=== PATIENT | male | born 1990 | race Caucasian/White ===

== ENCOUNTER 2017-05-23 14:35 | Inpatient (IN) | payer OTHER ==
[2017-05-23 14:50] VITALS: BMI 22.6
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
[2017-05-23] MEDS ORDERED: IBUPROFEN 400 MG TABLET (FP) PO PRN (15:42)
[2017-05-23] MEDS ORDERED: NICOTINE POLACRILEX 4 MG GUM BC PRN (15:42)
[2017-05-23] MEDS ORDERED: hydrOXYzine PAMOATE 50 MG CAPSULE (FP) PO PRN (15:42)
[2017-05-23] MEDS ORDERED: ACETAMINOPHEN 325 MG TABLET (FP) PO PRN (15:42)
[2017-05-23] MEDS ORDERED: METHADONE HCL 10 MG TABLET (FOR DETOX USE ONLY) PO ONE ×2 (15:42→23:00)
[2017-05-23] MEDS ORDERED: P-EPHED 60MG/TRIPROLIDI 2.5MG TABLET PO PRN (15:42)
[2017-05-23] MEDS ORDERED: LOPERAMIDE HCL 2 MG CAPSULE PO PRN (15:42)
[2017-05-23] MEDS ORDERED: guaiFENesin/D-METHORPHAN HB 10 ML UNIT-DOSE CUPS PO PRN (15:42)
[2017-05-23] MEDS ORDERED: diphenhydrAMINE HCL 50 MG CAPSULE PO PRN (15:42)
[2017-05-23] MEDS ORDERED: MAGNESIUM CITRATE 300 ML BOTTLE PO PRN (15:42)
[2017-05-23] MEDS ORDERED: MENTHOL/PHENOL 1 EACH UD MM PRN (15:42)
[2017-05-23] MEDS ORDERED: MAGNESIUM HYDROX 2400MG/30ML ORAL SUSPENSION 30 ML CUP PO PRN (15:42)
[2017-05-23] MEDS ORDERED: MAG HYDROX/AL HYDROX/SIMETH 30 ML UNIT-DOSE CUP PO PRN (15:42)
[2017-05-23] MEDS: diazePAM 5 MG TABLET PO PRN ×2 (17:06→22:11)
[2017-05-23 21:11] LABS: URINE APPEARANCE SLCLOUDY; URINE BILIRUBIN NEGATIVE (NEGATIVE); URINE BLOOD NEGATIVE (NEGATIVE); URINE COLOR YELLOW; URINE GLUCOSE (UA) NEGATIVE (NEGATIVE); URINE KETONE NEGATIVE (NEGATIVE); URINE LEUK ESTERASE NEGATIVE (NEGATIVE); URINE NITRITE NEGATIVE (NEGATIVE); URINE PROTEIN NEGATIVE (NEGATIVE); URINE UROBILINOGEN NEGATIVE mg/dL (0.2-1.0)
[2017-05-23] MEDS: THIAMINE HCL 100 MG TABLET (FP) PO SCH (22:10)
--- NOTE | 2017-05-24 09:51 | PN ---
BHS COWS - Scale Resting Pulse: 0= [place] 80 or Below Sweatin= Chills/Flushing Restless Observation: 3= Extraneous Movement Pupil Size: 1= Pupils >than Normal Bone or Joint Aches: 2= Severe Diffuse Aches Runny Nose/ Eye Tearin= Runny Nose/Eyes GI Upset > 30mins: 3= Vomiting/Diarrhea Tremor Observation of Outstretched Hands: 2= Slight Tremor Visible Yawning Observation: 1= 1-2x During Session Anxiety or Irritability: 2=Irritable/Anxious Goose Flesh Skin: 0=Smooth Skin COWS Score: 17 BHS Progress Note (SOAP) Subjective: ALERT,IRRITABLE,ANXIOUS,INTERRUPTED SLEEP,TREMOR,PAIN IN THE BODY AND BACK Objective: 05/24/17 09:48 Vital Signs Temperature 97.9 F 05/24/17 09:20 Pulse Rate 57 L 05/24/17 09:20 Respiratory Rate 16 05/24/17 09:20 Blood Pressure 153/99 05/24/17 09:20 O2 Sat by Pulse Oximetry (%) EKG SINUS BRADYCARDIA WITH SINUS ARRHYTHMIA NORMAL ECG NO CHEST PAIN,NO SOB,NO DIZZINESS 05/24/17 09:49 Laboratory Last Values Urine Color Yellow 05/23/17 20:00 Urine Appearance Slcloudy 05/23/17 20:00 Urine pH 5.0 (5.0-8.0) 05/23/17 20:00 Ur Specific [place] 1.025 (1.005-1.025) 05/23/17 20:00 Urine Protein Negative (NEGATIVE) 05/23/17 20:00 Urine Glucose (UA) Negative (NEGATIVE) 05/23/17 20:00 Urine Ketones Negative (NEGATIVE) 05/23/17 20:00 Urine Blood Negative (NEGATIVE) 05/23/17 20:00 Urine Nitrite Negative (NEGATIVE) 05/23/17 20:00 Urine Bilirubin Negative (NEGATIVE) 05/23/17 20:00 Urine Urobilinogen Negative mg/dL (0.2-1.0) 05/23/17 20:00 Ur Leukocyte Esterase Negative (NEGATIVE) 05/23/17 20:00 LABS PENDING Assessment: 05/24/17 09:49 05/24/17 09:50 WITHDRAWAL SYMPTOM Plan: CONTINUE DETOX
[2017-05-24 09:58] LABS: MCHC 33.8 g/dl (32.0-35.9); MEAN CELL VOLUME 86.1 fl (80-96); MEAN PLT VOLUME 7.6 fl (7.5-11.1); PLATELET COUNT 312 K/MM3 (134-434); RDW 11.4 % (11.9-15.9); WHITE BLOOD COUNT 8.7 K/mm3 (4.0-10.0)
[2017-05-24] MEDS ORDERED: METHADONE HCL 10 MG TABLET (FOR DETOX USE ONLY) PO ONE (10:00)
[2017-05-24] MEDS: PRENATAL VITAMINS W/ FOLIC ACID TABLET (FP) PO SCH (10:07)
[2017-05-24] MEDS: cloNIDine HCL 0.1 MG TABLET PO SCH ×2 (10:08→22:06)
[2017-05-24] MEDS: NICOTINE 21 MG/24 HOURS TOPICAL PATCH TD SCH (10:10)
[2017-05-24 10:45] LABS: ANION GAP 7 (8-16); BILIRUBIN,TOTAL 0.6 mg/dL (0.2-1.0); CALCIUM 9.5 mg/dL (8.5-10.1); CO2 35 mmol/L (21-32); CREATININE 0.7 mg/dL (0.7-1.3); GLUCOSE,RANDOM 91 mg/dL (74-106); SGOT/AST 13 U/L (15-37); SGPT/ALT 27 U/L (12-78); TOT PROT 7.4 g/dl (6.4-8.2)
[2017-05-24 10:48] LABS: ALK PHOS 100 U/L (45-117)
[2017-05-24 12:39] LABS: HIV 1 & 2 AB NEGATIVE; HIV 1 AGp24 NEGATIVE
--- NOTE | 2017-05-24 16:44 | CONSULT ---
[facility] Psychiatric Consult - Data Date of interview: 05/24/17 Admission source: [facility] Identifying data: First admission to [facility] for this 26 y/o - [place] male from [facility] ancestry seeking detox treatment on for heroin dependence (tox screen is positive for marihuana).Patient is single without children,domiciled and currently employed. Substance Abuse History: Confirmed by patient in this interview. Smoking Cessation. Smoking history: Former smoker. Have you smoked in the past 12 months: Yes. Aproximately how many cigarettes per day: 3. Hx Chewing Tobacco Use: No. Initiated information on smoking cessation: Yes. 'Breaking Loose' booklet given: 05/23/17. - Substance & Tx. History. Hx Alcohol Use: No. Hx Substance Use: Yes. Substance Use Type: Heroin. Hx Substance Use Treatment: No (this is his first detox.). - Substances Abused. Heroin. Route: Injection. Frequency: Daily. Amount used: 5 bags. Age of first use: 22. Date of Last Use: 05/23/17 Medical History: Patient endorses good general health. Psychiatric History: Patient denies. Physical/Sexual Abuse/Trauma History: No reported history of abuse. Additional Comment: Urine Drug Screen Results: THC-Marijuana, OPI-Opiates.Noted. Mental Status Exam - Mental Status Exam Alert and Oriented to: Time, Place, Person Cognitive Function: Good Patient Appearance: Well Groomed Mood: Nervous, Anxious Affect: Mood Congruent Patient Behavior: Fatigued, Appropriate, Cooperative (friendly) Speech Pattern: Clear, Appropriate (bilingual) Voice Loudness: Normal Thought Process: Intact, Goal Oriented Thought Disorder: Not Present Hallucinations: Denies Suicidal Ideation: Denies Homicidal Ideation: Denies Insight/Judgement: Poor Sleep: Well Appetite: Good Muscle strength/Tone: Normal Gait/Station: Normal Psychiatric Findings - Problem List ([place] 1, 2,3) (1) Nicotine dependence Current Visit: Yes Status: Acute Qualifiers: Nicotine product type: cigarettes Substance use status: uncomplicated Qualified Code(s): F17.210 - Nicotine dependence, cigarettes, uncomplicated (2) Opioid dependence with withdrawal Current Visit: Yes Status: Acute (3) Marijuana abuse Current Visit: Yes Status: Acute - Initial Treatment Plan Initial Treatment Plan: Psychoeducation.Detoxification.Observation.
[2017-05-24] MEDS: diazePAM 5 MG TABLET PO PRN ×2 (17:23→22:07)
[2017-05-24] MEDS: CYCLOBENZAPRINE HCL 10 MG TABLET (FP) PO PRN (22:06)
[2017-05-24] MEDS: THIAMINE HCL 100 MG TABLET (FP) PO SCH (22:06)
[2017-05-25] MEDS ORDERED: METHADONE HCL 5 MG TABLET (FOR DETOX USE ONLY) PO ONE (10:00)
[2017-05-25] MEDS: diazePAM 5 MG TABLET PO PRN ×3 (10:45→22:09)
[2017-05-25] MEDS: PRENATAL VITAMINS W/ FOLIC ACID TABLET (FP) PO SCH (10:46)
[2017-05-25] MEDS: NICOTINE 21 MG/24 HOURS TOPICAL PATCH TD SCH (10:46)
[2017-05-25] MEDS: CYCLOBENZAPRINE HCL 10 MG TABLET (FP) PO PRN ×2 (10:46→22:09)
[2017-05-25] MEDS: cloNIDine HCL 0.1 MG TABLET PO SCH ×2 (10:46→22:09)
--- NOTE | 2017-05-25 11:34 | EKG ---
Test Reason : Blood Pressure : / mmHG Vent. Rate : 059 BPM Atrial Rate : 059 BPM P-R Int : 140 ms QRS Dur : 098 ms QT Int : 414 ms P-R-T Axes : 055 075 060 degrees QTc Int : 409 ms SINUS BRADYCARDIA WITH SINUS ARRHYTHMIA OTHERWISE NORMAL ECG NO PREVIOUS ECGS AVAILABLE Confirmed by SOREN BELLA MD ([id number]) on 05/25/2017 11:33:34 AM Referred By: Confirmed By:SOREN BELLA MD
--- NOTE | 2017-05-25 12:23 | PN ---
BHS COWS - Scale Resting Pulse: 0= [place] 80 or Below Sweatin= Chills/Flushing Restless Observation: 3= Extraneous Movement Pupil Size: 1= Pupils >than Normal Bone or Joint Aches: 2= Severe Diffuse Aches Runny Nose/ Eye Tearin= Runny Nose/Eyes GI Upset > 30mins: 2= Nausea/Diarrhea Tremor Observation of Outstretched Hands: 2= Slight Tremor Visible Yawning Observation: 1= 1-2x During Session Anxiety or Irritability: 2=Irritable/Anxious Goose Flesh Skin: 0=Smooth Skin COWS Score: 16 S Progress Note (SOAP) Subjective: ALERT,IRRITABLE,ANXIOUS,INTERRUPTED SLEEP,PAIN IN THE BODY AND BACK Objective: 05/25/17 12:21 Vital Signs Temperature 97.7 F 05/25/17 09:51 Pulse Rate 66 05/25/17 09:51 Respiratory Rate 18 05/25/17 09:51 Blood Pressure 128/81 05/25/17 09:51 O2 Sat by Pulse Oximetry (%) Laboratory Last Values WBC 8.7 K/mm3 (4.0-10.0) 05/24/17 07:00 RBC 4.84 M/mm3 (4.00-5.60) 05/24/17 07:00 Hgb 14.1 GM/dL (11.7-16.9) 05/24/17 07:00 Hct 41.7 % (35.4-49) 05/24/17 07:00 MCV 86.1 fl (80-96) 05/24/17 07:00 MCH 29.0 pg (25.7-33.7) 05/24/17 07:00 MCHC 33.8 g/dl (32.0-35.9) 05/24/17 07:00 RDW 11.4 % (11.9-15.9) L 05/24/17 07:00 Plt Count 312 K/MM3 (134-434) 05/24/17 07:00 MPV 7.6 fl (7.5-11.1) 05/24/17 07:00 Sodium 141 mmol/L (136-145) 05/24/17 07:00 Potassium 4.8 mmol/L (3.5-5.1) 05/24/17 07:00 Chloride 99 mmol/L (98-107) 05/24/17 07:00 Carbon Dioxide 35 mmol/L (21-32) H 05/24/17 07:00 Anion Gap 7 (8-16) L 05/24/17 07:00 BUN 13 mg/dL (7-18) 05/24/17 07:00 Creatinine 0.7 mg/dL (0.7-1.3) 05/24/17 07:00 Creat Clearance w eGFR > 60 (>60) 05/24/17 07:00 Random Glucose 91 mg/dL (74-106) 05/24/17 07:00 Calcium 9.5 mg/dL (8.5-10.1) 05/24/17 07:00 Total Bilirubin 0.6 mg/dL (0.2-1.0) 05/24/17 07:00 AST 13 U/L (15-37) L 05/24/17 07:00 ALT 27 U/L (12-78) 05/24/17 07:00 Alkaline Phosphatase 100 U/L (45-117) 05/24/17 07:00 Total Protein 7.4 g/dl (6.4-8.2) 05/24/17 07:00 Albumin 4.0 g/dl (3.4-5.0) 05/24/17 07:00 Urine Color Yellow 05/23/17 20:00 Urine Appearance Slcloudy 05/23/17 20:00 Urine pH 5.0 (5.0-8.0) 05/23/17 20:00 Ur Specific [place] 1.025 (1.005-1.025) 05/23/17 20:00 Urine Protein Negative (NEGATIVE) 05/23/17 20:00 Urine Glucose (UA) Negative (NEGATIVE) 05/23/17 20:00 Urine Ketones Negative (NEGATIVE) 05/23/17 20:00 Urine Blood Negative (NEGATIVE) 05/23/17 20:00 Urine Nitrite Negative (NEGATIVE) 05/23/17 20:00 Urine Bilirubin Negative (NEGATIVE) 05/23/17 20:00 Urine Urobilinogen Negative mg/dL (0.2-1.0) 05/23/17 20:00 Ur Leukocyte Esterase Negative (NEGATIVE) 05/23/17 20:00 HIV 1&2 Antibody Screen Negative 05/23/17 07:00 HIV P24 Antigen Negative 05/23/17 07:00 Assessment: 05/25/17 12:22 WITHDRAWAL SYMPTOM Plan: CONTINUE DETOX
--- NOTE | 2017-05-25 12:57 | EKG ---
Test Reason : Blood Pressure : / mmHG Vent. Rate : 055 BPM Atrial Rate : 055 BPM P-R Int : 134 ms QRS Dur : 088 ms QT Int : 424 ms P-R-T Axes : 067 080 064 degrees QTc Int : 405 ms SINUS BRADYCARDIA OTHERWISE NORMAL ECG WHEN COMPARED WITH ECG OF 23-MAY-2017 16:13, NO SIGNIFICANT CHANGE WAS FOUND Confirmed by SOREN BELLA MD ([id number]) on 05/25/2017 12:57:36 PM Referred By: Confirmed By:SOREN BELLA MD
[2017-05-25] MEDS: THIAMINE HCL 100 MG TABLET (FP) PO SCH (22:09)
[2017-05-26] MEDS ORDERED: METHADONE HCL 5 MG TABLET (FOR DETOX USE ONLY) PO ONE (10:00)
[2017-05-26] MEDS: PRENATAL VITAMINS W/ FOLIC ACID TABLET (FP) PO SCH (10:56)
[2017-05-26] MEDS: cloNIDine HCL 0.1 MG TABLET PO SCH ×2 (10:57→22:04)
[2017-05-26] MEDS: NICOTINE 21 MG/24 HOURS TOPICAL PATCH TD SCH (10:57)
[2017-05-26] MEDS: diazePAM 5 MG TABLET PO PRN (10:57)
[2017-05-26] MEDS: CYCLOBENZAPRINE HCL 10 MG TABLET (FP) PO PRN ×2 (10:57→22:04)
[2017-05-26] MEDS: THIAMINE HCL 100 MG TABLET (FP) PO SCH (22:04)
[2017-05-27] MEDS ORDERED: METHADONE HCL 10 MG TABLET (FOR DETOX USE ONLY) PO ONE (10:00)
[2017-05-27] MEDS: CYCLOBENZAPRINE HCL 10 MG TABLET (FP) PO PRN ×2 (11:01→22:08)
[2017-05-27] MEDS: cloNIDine HCL 0.1 MG TABLET PO SCH ×2 (11:01→22:08)
[2017-05-27] MEDS: PRENATAL VITAMINS W/ FOLIC ACID TABLET (FP) PO SCH (11:01)
[2017-05-27] MEDS: NICOTINE 21 MG/24 HOURS TOPICAL PATCH TD SCH (11:02)
--- NOTE | 2017-05-27 12:06 | PN ---
BHS Progress Note (SOAP) Subjective: ALERT,IRRITABLE,ANXIOUS,INTERRUPTED SLEEP,PAIN IN THE BODY Objective: 05/27/17 12:05 Vital Signs Temperature 96.8 F L 05/27/17 10:23 Pulse Rate 68 05/27/17 10:23 Respiratory Rate 18 05/27/17 10:23 Blood Pressure 129/79 05/27/17 10:23 O2 Sat by Pulse Oximetry (%) Assessment: 05/27/17 12:05 WITHDRAWAL SYMPTOM Plan: CONTINUE DETOX,DISCHARGE IN AM
[2017-05-27] MEDS: THIAMINE HCL 100 MG TABLET (FP) PO SCH (22:08)
[2017-05-28] MEDS ORDERED: METHADONE HCL 5 MG TABLET (FOR DETOX USE ONLY) PO ONE (06:00)
[2017-05-28] MEDS: cloNIDine HCL 0.1 MG TABLET PO SCH (10:15)
[2017-05-28] MEDS: PRENATAL VITAMINS W/ FOLIC ACID TABLET (FP) PO SCH (10:15)
[2017-05-28] MEDS: NICOTINE 21 MG/24 HOURS TOPICAL PATCH TD SCH (10:15)
[2017-05-28 10:41] VITALS: BP 118/75; PULSE 94; TEMP 99
--- NOTE | 2017-05-28 11:41 | DS ---
[facility] Detox Discharge Summary Admission Date: 05/23/17 Discharge Date: 05/28/17 - History Present History: Opioid Dependence Additional Comments: follow up with [facility] as arrangement Pertinent Past History: nicotine dependence - Physical Exam Results Vital Signs: Vital Signs Temperature 99.0 F 05/28/17 10:00 Pulse Rate 94 H 05/28/17 10:00 Respiratory Rate 18 05/28/17 10:00 Blood Pressure 118/75 05/28/17 10:00 O2 Sat by Pulse Oximetry (%) Pertinent Admission Physical Exam Findings: withdrawal symptom - Treatment Hospital Course: Detox Protocol Followed, Detoxed Safely, Responded well, Discharged Condition Good, Rehab Referral Accepted Patient has Accepted a Rehab Referral to: [facility] - Medication Discharge Medications: Ambulatory Orders NK [No Known Home Medication] 05/23/17 - AMA Did Patient Leave Against Medical Advice: No
== END 2017-05-28 12:30 | disposition other institution (70) | DRG 773 ==
LOC: YASAS 14:35 → Y6N 16:12
PROVIDERS: ADMIT Internal Medicine; ATTEND Internal Medicine
PROC: HZ2ZZZZ Detoxification Services for Substance Abuse Treatment (ICD-10-PCS; principal; 2017-05-28)
DX: F11.23 Opioid dependence with withdrawal (principal); F17.210 Nicotine dependence, cigarettes, uncomplicated; F32.9 Major depressive disorder, single episode, unspecified
CPT/HCPCS: 36415; 80053; 81003; 85027; 86593; 87389; 93005; 93010

== ENCOUNTER 2017-05-28 13:13 | Inpatient (IN) | payer OTHER ==
[2017-05-28] MEDS ORDERED: ACETAMINOPHEN 325 MG TABLET (FP) PO PRN (13:58)
[2017-05-28] MEDS ORDERED: MAGNESIUM CITRATE 300 ML BOTTLE PO PRN (13:58)
[2017-05-28] MEDS ORDERED: P-EPHED 60MG/TRIPROLIDI 2.5MG TABLET PO PRN (13:58)
[2017-05-28] MEDS ORDERED: MENTHOL/PHENOL 1 EACH UD MM PRN (13:58)
[2017-05-28] MEDS ORDERED: MAG HYDROX/AL HYDROX/SIMETH 30 ML UNIT-DOSE CUP PO PRN (13:58)
[2017-05-28] MEDS ORDERED: guaiFENesin/D-METHORPHAN HB 10 ML UNIT-DOSE CUPS PO PRN (13:58)
[2017-05-28] MEDS ORDERED: LOPERAMIDE HCL 2 MG CAPSULE PO PRN (13:58)
[2017-05-28] MEDS ORDERED: IBUPROFEN 400 MG TABLET (FP) PO PRN (13:58)
[2017-05-28] MEDS: THIAMINE HCL 100 MG TABLET (FP) PO SCH (21:19)
[2017-05-29] MEDS: PRENATAL VITAMINS W/ FOLIC ACID TABLET (FP) PO SCH (09:50)
[2017-05-29] MEDS: hydrOXYzine PAMOATE 50 MG CAPSULE (FP) PO PRN ×2 (09:51→21:17)
[2017-05-29] MEDS: THIAMINE HCL 100 MG TABLET (FP) PO SCH (21:17)
[2017-05-30] MEDS: hydrOXYzine PAMOATE 50 MG CAPSULE (FP) PO PRN (06:22)
[2017-05-30] MEDS: PRENATAL VITAMINS W/ FOLIC ACID TABLET (FP) PO SCH (10:09)
[2017-05-30] MEDS: MAGNESIUM HYDROX 2400MG/30ML ORAL SUSPENSION 30 ML CUP PO PRN (10:11)
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
[2017-05-30] MEDS: diphenhydrAMINE HCL 50 MG CAPSULE PO PRN (21:19)
[2017-05-30] MEDS: THIAMINE HCL 100 MG TABLET (FP) PO SCH (21:19)
[2017-05-31] MEDS: hydrOXYzine PAMOATE 50 MG CAPSULE (FP) PO PRN ×3 (02:23→23:50)
[2017-05-31] MEDS: PRENATAL VITAMINS W/ FOLIC ACID TABLET (FP) PO SCH (10:02)
[2017-05-31] MEDS ORDERED: MAGNESIUM CITRATE 300 ML BOTTLE PO PRN (12:25)
[2017-05-31] MEDS: THIAMINE HCL 100 MG TABLET (FP) PO SCH (21:14)
[2017-05-31] MEDS: diphenhydrAMINE HCL 50 MG CAPSULE PO PRN (21:14)
[2017-06-01] MEDS: hydrOXYzine PAMOATE 50 MG CAPSULE (FP) PO PRN ×3 (02:55→21:15)
[2017-06-01] MEDS: PRENATAL VITAMINS W/ FOLIC ACID TABLET (FP) PO SCH (09:38)
[2017-06-01] MEDS: MAGNESIUM HYDROX 2400MG/30ML ORAL SUSPENSION 30 ML CUP PO PRN (09:39)
[2017-06-01] MEDS: THIAMINE HCL 100 MG TABLET (FP) PO SCH (21:15)
[2017-06-01] MEDS: diphenhydrAMINE HCL 50 MG CAPSULE PO PRN (23:26)
[2017-06-02] MEDS: hydrOXYzine PAMOATE 50 MG CAPSULE (FP) PO PRN ×2 (01:11→09:51)
[2017-06-02] MEDS: PRENATAL VITAMINS W/ FOLIC ACID TABLET (FP) PO SCH (09:50)
[2017-06-02] MEDS: THIAMINE HCL 100 MG TABLET (FP) PO SCH (22:13)
[2017-06-02] MEDS: diphenhydrAMINE HCL 50 MG CAPSULE PO PRN (22:13)
[2017-06-03] MEDS: hydrOXYzine PAMOATE 50 MG CAPSULE (FP) PO PRN (00:38)
[2017-06-03] MEDS: PRENATAL VITAMINS W/ FOLIC ACID TABLET (FP) PO SCH (09:50)
[2017-06-03] MEDS: THIAMINE HCL 100 MG TABLET (FP) PO SCH (21:11)
[2017-06-04] MEDS: PRENATAL VITAMINS W/ FOLIC ACID TABLET (FP) PO SCH (09:50)
[2017-06-04] MEDS: THIAMINE HCL 100 MG TABLET (FP) PO SCH (21:12)
[2017-06-04] MEDS: diphenhydrAMINE HCL 50 MG CAPSULE PO PRN (21:12)
[2017-06-05] MEDS: PRENATAL VITAMINS W/ FOLIC ACID TABLET (FP) PO SCH (09:55)
[2017-06-05] MEDS: hydrOXYzine PAMOATE 50 MG CAPSULE (FP) PO PRN (09:55)
[2017-06-05] MEDS: THIAMINE HCL 100 MG TABLET (FP) PO SCH (21:11)
[2017-06-05] MEDS: diphenhydrAMINE HCL 50 MG CAPSULE PO PRN (21:11)
[2017-06-06] MEDS: PRENATAL VITAMINS W/ FOLIC ACID TABLET (FP) PO SCH (09:54)
[2017-06-06] MEDS: THIAMINE HCL 100 MG TABLET (FP) PO SCH (21:12)
[2017-06-07] MEDS: PRENATAL VITAMINS W/ FOLIC ACID TABLET (FP) PO SCH (10:05)
[2017-06-07] MEDS: THIAMINE HCL 100 MG TABLET (FP) PO SCH (21:14)
[2017-06-07] MEDS: diphenhydrAMINE HCL 50 MG CAPSULE PO PRN (21:14)
[2017-06-08] MEDS: PRENATAL VITAMINS W/ FOLIC ACID TABLET (FP) PO SCH (09:59)
[2017-06-08] MEDS: hydrOXYzine PAMOATE 50 MG CAPSULE (FP) PO PRN (10:00)
[2017-06-08] MEDS: THIAMINE HCL 100 MG TABLET (FP) PO SCH (21:12)
[2017-06-08] MEDS: diphenhydrAMINE HCL 50 MG CAPSULE PO PRN (21:12)
[2017-06-09] MEDS: PRENATAL VITAMINS W/ FOLIC ACID TABLET (FP) PO SCH (10:00)
--- NOTE | 2017-06-09 14:35 | PN ---
Psychiatric Progress Note Vital Signs: Vital Signs Period Temp Pulse Resp BP Sys/Ma Pulse Ox Last 24 Hr 98.0 F 72 16-18 128/90 Date of Session: 06/09/17 Chief Complaint:: discharge visit HPI: Patient is addressing opioid, nicotine dependence, cannabis abuse. ROS: WNL Current Medications: Active Medications Generic Name Dose Route Start Last Admin Trade Name Freq PRN Reason Stop Dose Admin Acetaminophen 650 mg 05/28/17 13:58 Tylenol - PO Q4H PRN FEVER OR PAIN Al Hydroxide/Mg Hydroxide 30 ml 05/28/17 13:58 Mylanta Oral Suspension - PO Q6H PRN DYSPEPSIA Diphenhydramine HCl 50 mg 05/28/17 22:00 06/08/17 21:12 Benadryl - PO 50 mg HSMR1 PRN Administration FOR ITCHING Eucalyptus/Menthol/Phenol/Sorbitol 1 each 05/28/17 13:58 Cepastat Lozenge - MM Q4H PRN SORE THROAT Guaifenesin 10 ml 05/28/17 13:58 Robitussin Dm - PO Q6H PRN COUGH Hydroxyzine Pamoate 50 mg 05/28/17 13:58 06/08/17 10:00 Vistaril - PO 50 mg Q4H PRN Administration AGITATION Ibuprofen 400 mg 05/28/17 13:58 Motrin - PO Q6H PRN PAIN Loperamide HCl 4 mg 05/28/17 13:58 Imodium - PO Q6H PRN DIARRHEA Magnesium Hydroxide 30 ml 05/28/17 13:58 06/01/17 09:39 Milk Of Magnesia - PO 30 ml DAILY PRN Administration CONSTIPATION Multivit/Folic Acid/Iron 1 tab 05/29/17 10:00 06/09/17 10:00 Vitamins (Sjr) - PO 1 tab DAILY DEBORAH Administration Pseudoephedrine/Triprolidine 1 combo 05/28/17 13:58 Actifed - PO TID PRN NASAL CONGESTION Thiamine HCl 100 mg 05/28/17 22:00 06/08/17 21:12 Vitamin B1 - PO 100 mg HS DEBORAH Administration Current Side Effect: No Lab tests ordered: No Lab tests reviewed: Yes Provider note:: Patient will completed this treatment on 06/10/17 and meet his goals, will continue to address his issues at [facility] in [facility] inpatient rehabilitation 90 days treatment program. Patient gained insihts into importance of changing attitudes, using coping skills and utilize all supports available to prevent relapses.He was educated on his addiction, implications and consequences on his physical and mental health, the importance to maintain sobriety. Supportive psychotherapy provided, patient is stable for discharge on 06/10/17. Total face to face time:: 35 Mental Status Exam - Mental Status Exam Alert and Oriented to: Time, Place, Person Cognitive Function: Good Patient Appearance: Well Groomed Mood: Hopeful Affect: Appropriate, Mood Congruent Patient Behavior: Appropriate, Cooperative Speech Pattern: Clear, Appropriate Voice Loudness: Normal Thought Process: Intact, Goal Oriented Thought Disorder: Not Present Hallucinations: Denies Suicidal Ideation: Denies Homicidal Ideation: Denies Insight/Judgement: Fair Sleep: Well Appetite: Good Muscle strength/Tone: Normal Gait/Station: Normal Psychiatric Treatment Plan - Problem List (1) Marijuana abuse Current Visit: No (2) Nicotine dependence Current Visit: No Qualifiers: Nicotine product type: cigarettes Substance use status: uncomplicated Qualified Code(s): F17.210 - Nicotine dependence, cigarettes, uncomplicated (3) Opioid dependence Current Visit: Yes (4) Substance induced mood disorder Current Visit: Yes
[2017-06-09] MEDS: diphenhydrAMINE HCL 50 MG CAPSULE PO PRN (21:13)
[2017-06-09] MEDS: THIAMINE HCL 100 MG TABLET (FP) PO SCH (21:13)
[2017-06-10 06:41] VITALS: BP 144/94; PULSE 76; TEMP 98.1
[2017-06-10] MEDS: PRENATAL VITAMINS W/ FOLIC ACID TABLET (FP) PO SCH (09:45)
== END 2017-06-10 11:00 | disposition home or self-care (01) | DRG 772 ==
LOC: YASAS 13:13 → Y5N 13:14
PROVIDERS: ADMIT Psychiatry & Neurology Psychiatry; ATTEND Psychiatry & Neurology Psychiatry
PROC: HZ42ZZZ Group Counseling for Substance Abuse Treatment, Cognitive-Behavioral (ICD-10-PCS; principal; 2017-05-28)
DX: F11.20 Opioid dependence, uncomplicated (principal); F12.10 Cannabis abuse, uncomplicated; F17.210 Nicotine dependence, cigarettes, uncomplicated; F19.24 Other psychoactive substance dependence with psychoactive substance-induced mood disorder

== ENCOUNTER 2017-09-10 14:26 | Inpatient (IN) | payer SELFPAY ==
[2017-09-10 14:29] VITALS: BMI 23.2
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
[2017-09-10] MEDS ORDERED: guaiFENesin/D-METHORPHAN HB 10 ML UNIT-DOSE CUPS PO PRN (14:46)
[2017-09-10] MEDS ORDERED: P-EPHED 60MG/TRIPROLIDI 2.5MG TABLET PO PRN (14:46)
[2017-09-10] MEDS ORDERED: MENTHOL/PHENOL 1 EACH UD MM PRN (14:46)
[2017-09-10] MEDS ORDERED: IBUPROFEN 400 MG TABLET (FP) PO PRN (14:46)
[2017-09-10] MEDS ORDERED: MAGNESIUM HYDROX 2400MG/30ML ORAL SUSPENSION 30 ML CUP PO PRN (14:46)
[2017-09-10] MEDS ORDERED: MAG HYDROX/AL HYDROX/SIMETH 30 ML UNIT-DOSE CUP PO PRN (14:46)
[2017-09-10] MEDS ORDERED: METHADONE HCL 10 MG TABLET (FOR DETOX USE ONLY) PO ONE ×2 (14:46→23:00)
[2017-09-10] MEDS ORDERED: LOPERAMIDE HCL 2 MG CAPSULE PO PRN (14:46)
[2017-09-10] MEDS ORDERED: MAGNESIUM CITRATE 300 ML BOTTLE PO PRN (14:46)
[2017-09-10] MEDS ORDERED: ACETAMINOPHEN 325 MG TABLET (FP) PO PRN (14:46)
[2017-09-10] MEDS ORDERED: METHADONE HCL 10 MG TABLET (FOR DETOX USE ONLY) ONE (16:57)
[2017-09-10] MEDS: diazePAM 5 MG TABLET PO PRN ×2 (17:05→22:47)
[2017-09-10] MEDS: THIAMINE HCL 100 MG TABLET (FP) PO SCH (22:45)
[2017-09-11 00:07] LABS: URINE APPEARANCE TURBID; URINE BILIRUBIN NEGATIVE (NEGATIVE); URINE BLOOD 2+ (NEGATIVE); URINE COLOR YELLOW; URINE GLUCOSE (UA) NEGATIVE (NEGATIVE); URINE KETONE NEGATIVE (NEGATIVE); URINE LEUK ESTERASE NEGATIVE (NEGATIVE); URINE NITRITE NEGATIVE (NEGATIVE); URINE PROTEIN NEGATIVE (NEGATIVE); URINE UROBILINOGEN NEGATIVE mg/dL (0.2-1.0)
[2017-09-11 00:42] LABS: URINE MUCUS MANY
[2017-09-11] MEDS: diazePAM 5 MG TABLET PO PRN ×4 (02:49→22:53)
--- NOTE | 2017-09-11 09:02 | EKG ---
Test Reason : Blood Pressure : / mmHG Vent. Rate : 064 BPM Atrial Rate : 064 BPM P-R Int : 132 ms QRS Dur : 084 ms QT Int : 394 ms P-R-T Axes : 072 087 064 degrees QTc Int : 406 ms NORMAL SINUS RHYTHM NORMAL ECG WHEN COMPARED WITH ECG OF 24-MAY-2017 16:54, NO SIGNIFICANT CHANGE WAS FOUND Confirmed by VY MCINTOSH MD ([id number]) on 09/11/2017 9:02:18 AM Referred By: Confirmed By:VY MCINTOSH MD
[2017-09-11] MEDS ORDERED: METHADONE HCL 10 MG TABLET (FOR DETOX USE ONLY) PO ONE (10:00)
[2017-09-11 10:04] LABS: ALBUMIN 3.4 g/dl (3.4-5.0); ANION GAP 9 (8-16); CALCIUM 8.6 mg/dL (8.5-10.1); CO2 29 mmol/L (21-32); GLUCOSE,RANDOM 87 mg/dL (74-106)
[2017-09-11 10:09] LABS: ALK PHOS 107 U/L (45-117); BILIRUBIN,TOTAL 0.5 mg/dL (0.2-1.0); CREATININE 0.7 mg/dL (0.7-1.3); SGOT/AST 11 U/L (15-37); SGPT/ALT 73 U/L (12-78); TOT PROT 6.7 g/dl (6.4-8.2)
[2017-09-11 10:24] LABS: MCH 29.8 pg (25.7-33.7); MCHC 34.5 g/dl (32.0-35.9); MEAN CELL VOLUME 86.3 fl (80-96); MEAN PLT VOLUME 7.4 fl (7.5-11.1); PLATELET COUNT 249 K/MM3 (134-434); RDW 11.4 % (11.9-15.9); WHITE BLOOD COUNT 6.7 K/mm3 (4.0-10.0)
[2017-09-11] MEDS: PRENATAL VITAMINS W/ FOLIC ACID TABLET (FP) PO SCH (10:47)
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
[2017-09-11 13:38] LABS: URINE LEUK ESTERASE NEGATIVE (NEGATIVE)
--- NOTE | 2017-09-11 17:17 | PN ---
BHS COWS - Scale Resting Pulse: 0= DE 80 or Below Sweatin=Flushed/Facial Moisture Restless Observation: 3= Extraneous Movement Pupil Size: 0= Normal to Room Light Bone or Joint Aches: 2= Severe Diffuse Aches Runny Nose/ Eye Tearin= Nasal Congestion GI Upset > 30mins: 2= Nausea/Diarrhea Tremor Observation of Outstretched Hands: 2= Slight Tremor Visible Yawning Observation: 1= 1-2x During Session Anxiety or Irritability: 2=Irritable/Anxious Goose Flesh Skin: 0=Smooth Skin COWS Score: 15 BHS Progress Note (SOAP) Subjective: Sweating, anxious, interrupted sleep Objective: 09/11/17 17:15 Last Vital Signs Temp Pulse Resp BP Pulse Ox 98.2 F 78 18 127/69 09/11/17 14:33 09/11/17 14:33 09/11/17 14:33 09/11/17 14:33 Laboratory Tests 09/10/17 09/11/17 09/11/17 14:30 08:00 08:00 WBC 6.7 RBC 4.42 Hgb 13.2 Hct 38.2 MCV 86.3 MCH 29.8 MCHC 34.5 RDW 11.4 L Plt Count 249 D MPV 7.4 L Sodium 141 Potassium 4.3 Chloride 103 Carbon Dioxide 29 Anion Gap 9 BUN 11 Creatinine 0.7 Creat Clearance w eGFR > 60 Random Glucose 87 Calcium 8.6 Total Bilirubin 0.5 AST 11 L ALT 73 D Alkaline Phosphatase 107 Total Protein 6.7 Albumin 3.4 Urine Color Yellow Urine Appearance Turbid Urine pH 5.0 Ur Specific [place] 1.027 Urine Protein Negative Urine Glucose (UA) Negative Urine Ketones Negative Urine Blood 2+ H Urine Nitrite Negative Urine Bilirubin Negative Urine Urobilinogen Negative Ur Leukocyte Esterase Negative Urine WBC (Auto) None Urine RBC (Auto) None Urine Mucus Many RPR Titer 09/11/17 08:00 WBC RBC Hgb Hct MCV MCH MCHC RDW Plt Count MPV Sodium Potassium Chloride Carbon Dioxide Anion Gap BUN Creatinine Creat Clearance w eGFR Random Glucose Calcium Total Bilirubin AST ALT Alkaline Phosphatase Total Protein Albumin Urine Color Urine Appearance Urine pH Ur Specific [place] Urine Protein Urine Glucose (UA) Urine Ketones Urine Blood Urine Nitrite Urine Bilirubin Urine Urobilinogen Ur Leukocyte Esterase Urine WBC (Auto) Urine RBC (Auto) Urine Mucus RPR Titer Nonreactive Labs noted: UA shows 2+ blood Assessment: 09/11/17 17:16 Withdrawal symptoms Noted with microscopic hematuria Plan: Continue detox Microscopic hematuria: encouraged to drink lots of water, repeat UA
[2017-09-11] MEDS: THIAMINE HCL 100 MG TABLET (FP) PO SCH (22:53)
[2017-09-12] MEDS: diazePAM 5 MG TABLET PO PRN ×5 (06:05→22:46)
[2017-09-12] MEDS ORDERED: METHADONE HCL 5 MG TABLET (FOR DETOX USE ONLY) PO ONE (10:00)
[2017-09-12] MEDS: PRENATAL VITAMINS W/ FOLIC ACID TABLET (FP) PO SCH (10:52)
--- NOTE | 2017-09-12 14:18 | PN ---
BHS COWS - Scale Resting Pulse: 0= [place] 80 or Below Sweatin= Chills/Flushing Restless Observation: 3= Extraneous Movement Pupil Size: 2= Moderately Dilated Bone or Joint Aches: 4=Acute Joint/Muscle Pain Runny Nose/ Eye Tearin= Nasal Congestion GI Upset > 30mins: 1= Stomach Cramp Tremor Observation of Outstretched Hands: 1= Tremor [place], Not Seen Yawning Observation: 1= 1-2x During Session Anxiety or Irritability: 2=Irritable/Anxious Goose Flesh Skin: 0=Smooth Skin COWS Score: 16 BHS Progress Note (SOAP) Subjective: ANXIETY,IRRITABILITY,HOT/COLD CHILLS,INTERMITTENT SLEEP. Objective: 09/12/17 14:17 Vital Signs Temperature 98.3 F 09/12/17 14:05 Pulse Rate 79 09/12/17 14:05 Respiratory Rate 18 09/12/17 14:05 Blood Pressure 134/86 09/12/17 14:05 O2 Sat by Pulse Oximetry (%) Laboratory Last Values WBC 6.7 K/mm3 (4.0-10.0) 09/11/17 08:00 RBC 4.42 M/mm3 (4.00-5.60) 09/11/17 08:00 Hgb 13.2 GM/dL (11.7-16.9) 09/11/17 08:00 Hct 38.2 % (35.4-49) 09/11/17 08:00 MCV 86.3 fl (80-96) 09/11/17 08:00 MCH 29.8 pg (25.7-33.7) 09/11/17 08:00 MCHC 34.5 g/dl (32.0-35.9) 09/11/17 08:00 RDW 11.4 % (11.9-15.9) L 09/11/17 08:00 Plt Count 249 K/MM3 (134-434) D 09/11/17 08:00 MPV 7.4 fl (7.5-11.1) L 09/11/17 08:00 Sodium 141 mmol/L (136-145) 09/11/17 08:00 Potassium 4.3 mmol/L (3.5-5.1) 09/11/17 08:00 Chloride 103 mmol/L (98-107) 09/11/17 08:00 Carbon Dioxide 29 mmol/L (21-32) 09/11/17 08:00 Anion Gap 9 (8-16) 09/11/17 08:00 BUN 11 mg/dL (7-18) 09/11/17 08:00 Creatinine 0.7 mg/dL (0.7-1.3) 09/11/17 08:00 Creat Clearance w eGFR > 60 (>60) 09/11/17 08:00 Random Glucose 87 mg/dL (74-106) 09/11/17 08:00 Calcium 8.6 mg/dL (8.5-10.1) 09/11/17 08:00 Total Bilirubin 0.5 mg/dL (0.2-1.0) 09/11/17 08:00 AST 11 U/L (15-37) L 09/11/17 08:00 ALT 73 U/L (12-78) D 09/11/17 08:00 Alkaline Phosphatase 107 U/L (45-117) 09/11/17 08:00 Total Protein 6.7 g/dl (6.4-8.2) 09/11/17 08:00 Albumin 3.4 g/dl (3.4-5.0) 09/11/17 08:00 Urine Color Yellow 09/10/17 14:30 Urine Appearance Turbid 09/10/17 14:30 Urine pH 5.0 (5.0-8.0) 09/10/17 14:30 Ur Specific [place] 1.027 (1.001-1.035) 09/10/17 14:30 Urine Protein Negative (NEGATIVE) 09/10/17 14:30 Urine Glucose (UA) Negative (NEGATIVE) 09/10/17 14:30 Urine Ketones Negative (NEGATIVE) 09/10/17 14:30 Urine Blood 2+ (NEGATIVE) H 09/10/17 14:30 Urine Nitrite Negative (NEGATIVE) 09/10/17 14:30 Urine Bilirubin Negative (NEGATIVE) 09/10/17 14:30 Urine Urobilinogen Negative mg/dL (0.2-1.0) 09/10/17 14:30 Ur Leukocyte Esterase Negative (NEGATIVE) 09/10/17 14:30 Urine WBC (Auto) None /hpf (3-5) 09/10/17 14:30 Urine RBC (Auto) None /hpf (0-3) 09/10/17 14:30 Urine Mucus Many 09/10/17 14:30 RPR Titer Nonreactive (NONREACTIVE) 09/11/17 08:00 Hepatitis C Antibody 0.1 s/co ratio (0.0-0.9) 09/11/17 08:00 Assessment: 09/12/17 14:18 WITHDRAWAL SX Plan: CONTINUE DETOX
[2017-09-12] MEDS: THIAMINE HCL 100 MG TABLET (FP) PO SCH (22:44)
[2017-09-13] MEDS ORDERED: METHADONE HCL 5 MG TABLET (FOR DETOX USE ONLY) PO ONE (10:00)
[2017-09-13] MEDS: PRENATAL VITAMINS W/ FOLIC ACID TABLET (FP) PO SCH (10:55)
[2017-09-13 12:35] LABS: URINE APPEARANCE CLEAR; URINE BILIRUBIN NEGATIVE (NEGATIVE); URINE BLOOD NEGATIVE (NEGATIVE); URINE COLOR YELLOW; URINE GLUCOSE (UA) NEGATIVE (NEGATIVE); URINE KETONE NEGATIVE (NEGATIVE); URINE LEUK ESTERASE NEGATIVE (NEGATIVE); URINE NITRITE NEGATIVE (NEGATIVE); URINE PROTEIN NEGATIVE (NEGATIVE)
--- NOTE | 2017-09-13 13:58 | PN ---
BHS Progress Note (SOAP) Subjective: Anxious, Fatigue, Sweating. Objective: PT. A & O X 2 (UNCERTAIN ABOUT CURRENT DAY / DATE). NO ACUTE DISTRESS. 09/13/17 13:56 Vital Signs Temperature 98.1 F 09/13/17 09:48 Pulse Rate 92 H 09/13/17 09:48 Respiratory Rate 18 09/13/17 09:48 Blood Pressure 114/79 09/13/17 09:48 O2 Sat by Pulse Oximetry (%) Laboratory Tests 09/10/17 09/11/17 09/11/17 14:30 08:00 08:00 WBC 6.7 RBC 4.42 Hgb 13.2 Hct 38.2 MCV 86.3 MCH 29.8 MCHC 34.5 RDW 11.4 L Plt Count 249 D MPV 7.4 L Sodium Potassium Chloride Carbon Dioxide Anion Gap BUN Creatinine Creat Clearance w eGFR Random Glucose Calcium Total Bilirubin AST ALT Alkaline Phosphatase Total Protein Albumin Urine Color Yellow Urine Appearance Turbid Urine pH 5.0 Ur Specific [place] 1.027 Urine Protein Negative Urine Glucose (UA) Negative Urine Ketones Negative Urine Blood 2+ H Urine Nitrite Negative Urine Bilirubin Negative Urine Urobilinogen Negative Ur Leukocyte Esterase Negative Urine WBC (Auto) None Urine RBC (Auto) None Urine Mucus Many RPR Titer Hepatitis C Antibody 0.1 09/11/17 09/11/17 09/13/17 08:00 08:00 10:55 WBC RBC Hgb Hct MCV MCH MCHC RDW Plt Count MPV Sodium 141 Potassium 4.3 Chloride 103 Carbon Dioxide 29 Anion Gap 9 BUN 11 Creatinine 0.7 Creat Clearance w eGFR > 60 Random Glucose 87 Calcium 8.6 Total Bilirubin 0.5 AST 11 L ALT 73 D Alkaline Phosphatase 107 Total Protein 6.7 Albumin 3.4 Urine Color Yellow Urine Appearance Clear Urine pH 7.0 D Ur Specific [place] 1.020 Urine Protein Negative Urine Glucose (UA) Negative Urine Ketones Negative Urine Blood Negative Urine Nitrite Negative Urine Bilirubin Negative Urine Urobilinogen 2.0 Ur Leukocyte Esterase Urine WBC (Auto) Urine RBC (Auto) Urine Mucus RPR Titer Nonreactive Hepatitis C Antibody LABS NOTED. Assessment: 09/13/17 13:56 WITHDRAWAL SYMPTOMS. Plan: CONTINUE DETOX.
[2017-09-13] MEDS: hydrOXYzine PAMOATE 50 MG CAPSULE (FP) PO PRN ×2 (17:56→22:34)
[2017-09-13 19:37] LABS: URINE LEUK ESTERASE NEGATIVE (NEGATIVE)
[2017-09-13] MEDS: THIAMINE HCL 100 MG TABLET (FP) PO SCH (22:34)
[2017-09-14] MEDS ORDERED: METHADONE HCL 10 MG TABLET (FOR DETOX USE ONLY) PO ONE (10:00)
[2017-09-14] MEDS: PRENATAL VITAMINS W/ FOLIC ACID TABLET (FP) PO SCH (10:53)
--- NOTE | 2017-09-14 13:21 | PN ---
BHS Progress Note (SOAP) Subjective: Fatigue, Interrupted Sleep. Objective: PT. A & O X 3. NO ACUTE DISTRESS 09/14/17 13:17 Vital Signs Temperature 98.4 F 09/14/17 09:57 Pulse Rate 86 09/14/17 09:57 Respiratory Rate 16 09/14/17 09:57 Blood Pressure 110/76 09/14/17 09:57 O2 Sat by Pulse Oximetry (%) Laboratory Tests 09/10/17 09/11/17 09/11/17 14:30 08:00 08:00 WBC 6.7 RBC 4.42 Hgb 13.2 Hct 38.2 MCV 86.3 MCH 29.8 MCHC 34.5 RDW 11.4 L Plt Count 249 D MPV 7.4 L Sodium Potassium Chloride Carbon Dioxide Anion Gap BUN Creatinine Creat Clearance w eGFR Random Glucose Calcium Total Bilirubin AST ALT Alkaline Phosphatase Total Protein Albumin Urine Color Yellow Urine Appearance Turbid Urine pH 5.0 Ur Specific [place] 1.027 Urine Protein Negative Urine Glucose (UA) Negative Urine Ketones Negative Urine Blood 2+ H Urine Nitrite Negative Urine Bilirubin Negative Urine Urobilinogen Negative Ur Leukocyte Esterase Negative Urine WBC (Auto) None Urine RBC (Auto) None Urine Mucus Many RPR Titer Hepatitis C Antibody 0.1 09/11/17 09/11/17 09/13/17 08:00 08:00 10:55 WBC RBC Hgb Hct MCV MCH MCHC RDW Plt Count MPV Sodium 141 Potassium 4.3 Chloride 103 Carbon Dioxide 29 Anion Gap 9 BUN 11 Creatinine 0.7 Creat Clearance w eGFR > 60 Random Glucose 87 Calcium 8.6 Total Bilirubin 0.5 AST 11 L ALT 73 D Alkaline Phosphatase 107 Total Protein 6.7 Albumin 3.4 Urine Color Yellow Urine Appearance Clear Urine pH 7.0 D Ur Specific [place] 1.020 Urine Protein Negative Urine Glucose (UA) Negative Urine Ketones Negative Urine Blood Negative Urine Nitrite Negative Urine Bilirubin Negative Urine Urobilinogen 2.0 Ur Leukocyte Esterase Negative Urine WBC (Auto) Urine RBC (Auto) Urine Mucus RPR Titer Nonreactive Hepatitis C Antibody LABS NOTED. RESULTS OF REPEAT UA NOTED. 09/14/17 13:20 Assessment: 09/14/17 13:18 WITHDRAWAL SYMPTOMS. Plan: CONTINUE DETOX. INCREASE DAILY PO FLUID INTAKE. ENCOURAGE AMBULATION.
[2017-09-14] MEDS: hydrOXYzine PAMOATE 50 MG CAPSULE (FP) PO PRN ×2 (18:13→22:48)
[2017-09-14] MEDS: THIAMINE HCL 100 MG TABLET (FP) PO SCH (22:48)
[2017-09-15] MEDS ORDERED: METHADONE HCL 5 MG TABLET (FOR DETOX USE ONLY) PO ONE (06:00)
[2017-09-15 06:37] VITALS: BP 121/77; PULSE 60; TEMP 97
--- NOTE | 2017-09-15 15:04 | DS ---
[facility] Detox Discharge Summary Admission Date: 09/10/17 Discharge Date: 09/15/17 - History Present History: Cannabis Dependence, Opioid Dependence Additional Comments: PATIENT GOING [facility] (Ynes GONZALEZ.[place]) FOR AFTERCARE. PATIENT WAS DISCHARGED FROM DETOX UNIT IN STABLE MEDICAL CONDITION. Pertinent Past History: Nicotine Dependence, Depression. - Physical Exam Results Vital Signs: Vital Signs Temperature 97 F L 09/15/17 06:36 Pulse Rate 60 09/15/17 06:36 Respiratory Rate 16 09/15/17 06:36 Blood Pressure 121/77 09/15/17 06:36 O2 Sat by Pulse Oximetry (%) Pertinent Admission Physical Exam Findings: WITHDRAWAL SYMPTOMS. Laboratory Tests 09/10/17 09/11/17 09/11/17 14:30 08:00 08:00 WBC 6.7 RBC 4.42 Hgb 13.2 Hct 38.2 MCV 86.3 MCH 29.8 MCHC 34.5 RDW 11.4 L Plt Count 249 D MPV 7.4 L Sodium Potassium Chloride Carbon Dioxide Anion Gap BUN Creatinine Creat Clearance w eGFR Random Glucose Calcium Total Bilirubin AST ALT Alkaline Phosphatase Total Protein Albumin Urine Color Yellow Urine Appearance Turbid Urine pH 5.0 Ur Specific [place] 1.027 Urine Protein Negative Urine Glucose (UA) Negative Urine Ketones Negative Urine Blood 2+ H Urine Nitrite Negative Urine Bilirubin Negative Urine Urobilinogen Negative Ur Leukocyte Esterase Negative Urine WBC (Auto) None Urine RBC (Auto) None Urine Mucus Many RPR Titer Hepatitis C Antibody 0.1 09/11/17 09/11/17 09/13/17 08:00 08:00 10:55 WBC RBC Hgb Hct MCV MCH MCHC RDW Plt Count MPV Sodium 141 Potassium 4.3 Chloride 103 Carbon Dioxide 29 Anion Gap 9 BUN 11 Creatinine 0.7 Creat Clearance w eGFR > 60 Random Glucose 87 Calcium 8.6 Total Bilirubin 0.5 AST 11 L ALT 73 D Alkaline Phosphatase 107 Total Protein 6.7 Albumin 3.4 Urine Color Yellow Urine Appearance Clear Urine pH 7.0 D Ur Specific [place] 1.020 Urine Protein Negative Urine Glucose (UA) Negative Urine Ketones Negative Urine Blood Negative Urine Nitrite Negative Urine Bilirubin Negative Urine Urobilinogen 2.0 Ur Leukocyte Esterase Negative Urine WBC (Auto) Urine RBC (Auto) Urine Mucus RPR Titer Nonreactive Hepatitis C Antibody LABS NOTED. - Treatment Hospital Course: Detox Protocol Followed, Detoxed Safely, Responded well, Discharged Condition Good Patient has Accepted a Rehab Referral to: PT GOING TO [facility] (Hubert GONZALEZ) - Medication Discharge Medications: Ambulatory Orders NK [No Known Home Medication] 05/23/17 - Diagnosis (1) Opioid dependence with withdrawal Status: Acute (2) Marijuana abuse Status: Chronic (3) Cannabis dependence Status: Acute (4) Nicotine dependence Status: Acute Qualifiers: Nicotine product type: cigarettes Substance use status: in withdrawal Qualified Code(s): F17.213 - Nicotine dependence, cigarettes, with withdrawal (5) Substance-induced sleep disorder Status: Acute - AMA Did Patient Leave Against Medical Advice: No
== END 2017-09-15 09:23 | disposition home or self-care (01) | DRG 773 ==
LOC: YASAS 14:26 → Y3N 15:45
PROVIDERS: ADMIT Internal Medicine; ATTEND Internal Medicine
PROC: HZ2ZZZZ Detoxification Services for Substance Abuse Treatment (ICD-10-PCS; principal; 2017-09-10)
DX: F11.23 Opioid dependence with withdrawal (principal); F12.20 Cannabis dependence, uncomplicated; F17.210 Nicotine dependence, cigarettes, uncomplicated; F32.9 Major depressive disorder, single episode, unspecified
CPT/HCPCS: 36415; 80053; 81003; 81015; 85027; 86593; 86803; 93005; 93010

== ENCOUNTER 2017-09-27 13:33 | Inpatient (IN) | payer SELFPAY ==
[2017-09-27 16:47] VITALS: BMI 22.8
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
[2017-09-27] MEDS ORDERED: ACETAMINOPHEN 325 MG TABLET (FP) PO PRN (20:10)
[2017-09-27] MEDS ORDERED: MAGNESIUM CITRATE 300 ML BOTTLE PO PRN (20:10)
[2017-09-27] MEDS ORDERED: METHADONE HCL 10 MG TABLET (FOR DETOX USE ONLY) PO ONE ×2 (20:10→23:00)
[2017-09-27] MEDS ORDERED: MAG HYDROX/AL HYDROX/SIMETH 30 ML UNIT-DOSE CUP PO PRN (20:10)
[2017-09-27] MEDS ORDERED: MAGNESIUM HYDROX 2400MG/30ML ORAL SUSPENSION 30 ML CUP PO PRN (20:10)
[2017-09-27] MEDS ORDERED: LOPERAMIDE HCL 2 MG CAPSULE PO PRN (20:10)
[2017-09-27] MEDS ORDERED: P-EPHED 60MG/TRIPROLIDI 2.5MG TABLET PO PRN (20:10)
[2017-09-27] MEDS ORDERED: IBUPROFEN 400 MG TABLET (FP) PO PRN (20:10)
[2017-09-27] MEDS ORDERED: guaiFENesin/D-METHORPHAN HB 10 ML UNIT-DOSE CUPS PO PRN (20:10)
[2017-09-27] MEDS ORDERED: MENTHOL/PHENOL 1 EACH UD MM PRN (20:10)
[2017-09-27] MEDS: diazePAM 5 MG TABLET PO PRN (20:30)
[2017-09-27] MEDS: THIAMINE HCL 100 MG TABLET (FP) PO SCH (22:11)
[2017-09-27 23:25] LABS: URINE APPEARANCE CLOUDY; URINE BILIRUBIN NEGATIVE (NEGATIVE); URINE BLOOD NEGATIVE (NEGATIVE); URINE COLOR YELLOW; URINE GLUCOSE (UA) NEGATIVE (NEGATIVE); URINE KETONE NEGATIVE (NEGATIVE); URINE LEUK ESTERASE NEGATIVE (NEGATIVE); URINE NITRITE NEGATIVE (NEGATIVE); URINE PROTEIN NEGATIVE (NEGATIVE); URINE UROBILINOGEN NEGATIVE mg/dL (0.2-1.0)
[2017-09-28] MEDS: diazePAM 5 MG TABLET PO PRN ×4 (05:10→22:06)
--- NOTE | 2017-09-28 09:00 | PN ---
BHS COWS - Scale Resting Pulse: 0= [place] 80 or Below Sweatin= Chills/Flushing Restless Observation: 1= Difficult to Sit Still Pupil Size: 1= Pupils >than Normal Bone or Joint Aches: 2= Severe Diffuse Aches Runny Nose/ Eye Tearin= Nasal Congestion GI Upset > 30mins: 2= Nausea/Diarrhea Tremor Observation of Outstretched Hands: 1= Tremor [place], Not Seen Yawning Observation: 0= None Anxiety or Irritability: 1=Feels Anxious/Irritable Goose Flesh Skin: 0=Smooth Skin COWS Score: 10 BHS Progress Note (SOAP) Subjective: interrupted sleep, sweats, shakes , aches Objective: 09/28/17 08:58 Vital Signs Temperature 97.5 F L 09/28/17 05:45 Pulse Rate 59 L 09/28/17 05:45 Respiratory Rate 18 09/28/17 05:45 Blood Pressure 132/71 09/28/17 05:45 O2 Sat by Pulse Oximetry (%) Vital Signs Temperature 97.5 F L 09/28/17 05:45 Pulse Rate 59 L 09/28/17 05:45 Respiratory Rate 18 09/28/17 05:45 Blood Pressure 132/71 09/28/17 05:45 O2 Sat by Pulse Oximetry (%) Laboratory Tests 09/27/17 21:23 Urine Color Yellow Urine Appearance Cloudy Urine pH 8.0 Ur Specific [place] 1.017 Urine Protein Negative Urine Glucose (UA) Negative Urine Ketones Negative Urine Blood Negative Urine Nitrite Negative Urine Bilirubin Negative Urine Urobilinogen Negative pending labs pt aox3 , lying in bed appearing tired Assessment: 09/28/17 08:59 withdrawal sx's Plan: cont. detox increase fluids f/up pending labs
[2017-09-28] MEDS ORDERED: METHADONE HCL 10 MG TABLET (FOR DETOX USE ONLY) PO ONE (10:00)
[2017-09-28 10:10] LABS: ALBUMIN 3.6 g/dl (3.4-5.0); ANION GAP 6 (8-16); BLOOD UREA NITROGEN 10 mg/dL (7-18); CALCIUM 9.3 mg/dL (8.5-10.1); CHLORIDE 104 mmol/L (98-107); CO2 32 mmol/L (21-32); GLUCOSE,RANDOM 98 mg/dL (74-106); POTASSIUM 4.5 mmol/L (3.5-5.1); SGPT/ALT 66 U/L (12-78); SODIUM 142 mmol/L (136-145)
[2017-09-28 10:12] LABS: ALK PHOS 119 U/L (45-117); BILIRUBIN,TOTAL 0.3 mg/dL (0.2-1.0); CREATININE 0.7 mg/dL (0.7-1.3); SGOT/AST 23 U/L (15-37)
[2017-09-28] MEDS: PRENATAL VITAMINS W/ FOLIC ACID TABLET (FP) PO SCH (10:19)
[2017-09-28 10:41] LABS: HEMATOCRIT 39.7 % (35.4-49); MCH 28.7 pg (25.7-33.7); MCHC 32.8 g/dl (32.0-35.9); MEAN CELL VOLUME 87.5 fl (80-96); PLATELET COUNT 280 K/MM3 (134-434); RBC 4.53 M/mm3 (4.00-5.60); RDW 11.9 % (11.9-15.9); WHITE BLOOD COUNT 5.6 K/mm3 (4.0-10.0)
--- NOTE | 2017-09-28 13:04 | EKG ---
Test Reason : Blood Pressure : / mmHG Vent. Rate : 069 BPM Atrial Rate : 069 BPM P-R Int : 136 ms QRS Dur : 086 ms QT Int : 392 ms P-R-T Axes : 059 086 046 degrees QTc Int : 420 ms NORMAL SINUS RHYTHM NORMAL ECG WHEN COMPARED WITH ECG OF 10-SEP-2017 18:00, NO SIGNIFICANT CHANGE WAS FOUND Confirmed by SOREN BELLA MD ([id number]) on 09/28/2017 1:03:54 PM Referred By: Confirmed By:SOREN BELLA MD
[2017-09-28] MEDS: THIAMINE HCL 100 MG TABLET (FP) PO SCH (22:06)
[2017-09-29] MEDS: diazePAM 5 MG TABLET PO PRN ×5 (05:06→22:18)
[2017-09-29] MEDS ORDERED: METHADONE HCL 5 MG TABLET (FOR DETOX USE ONLY) PO ONE (10:00)
[2017-09-29] MEDS: PRENATAL VITAMINS W/ FOLIC ACID TABLET (FP) PO SCH (10:05)
--- NOTE | 2017-09-29 15:48 | PN ---
BHS COWS - Scale Resting Pulse: 0= [place] 80 or Below Sweatin=Flushed/Facial Moisture Restless Observation: 3= Extraneous Movement Pupil Size: 0= Normal to Room Light Bone or Joint Aches: 2= Severe Diffuse Aches Runny Nose/ Eye Tearin= Runny Nose/Eyes GI Upset > 30mins: 2= Nausea/Diarrhea Tremor Observation of Outstretched Hands: 0= None Yawning Observation: 1= 1-2x During Session Anxiety or Irritability: 2=Irritable/Anxious Goose Flesh Skin: 0=Smooth Skin COWS Score: 14 BHS Progress Note (SOAP) Subjective: Sweating, anxious, interrupted sleep Objective: 09/29/17 15:47 Last Vital Signs Temp Pulse Resp BP Pulse Ox 98.2 F 71 20 136/79 09/29/17 13:56 09/29/17 13:56 09/29/17 13:56 09/29/17 13:56 Laboratory Tests 09/27/17 09/28/17 09/28/17 21:23 07:54 07:54 WBC 5.6 RBC 4.53 Hgb 13.0 Hct 39.7 MCV 87.5 MCH 28.7 MCHC 32.8 RDW 11.9 Plt Count 280 MPV 8.0 Sodium 142 Potassium 4.5 Chloride 104 Carbon Dioxide 32 Anion Gap 6 L BUN 10 Creatinine 0.7 Creat Clearance w eGFR > 60 Random Glucose 98 Calcium 9.3 Total Bilirubin 0.3 D AST 23 D ALT 66 Alkaline Phosphatase 119 H Total Protein 7.0 Albumin 3.6 Urine Color Yellow Urine Appearance Cloudy Urine pH 8.0 Ur Specific [place] 1.017 Urine Protein Negative Urine Glucose (UA) Negative Urine Ketones Negative Urine Blood Negative Urine Nitrite Negative Urine Bilirubin Negative Urine Urobilinogen Negative Ur Leukocyte Esterase Negative RPR Titer 09/28/17 07:54 WBC RBC Hgb Hct MCV MCH MCHC RDW Plt Count MPV Sodium Potassium Chloride Carbon Dioxide Anion Gap BUN Creatinine Creat Clearance w eGFR Random Glucose Calcium Total Bilirubin AST ALT Alkaline Phosphatase Total Protein Albumin Urine Color Urine Appearance Urine pH Ur Specific [place] Urine Protein Urine Glucose (UA) Urine Ketones Urine Blood Urine Nitrite Urine Bilirubin Urine Urobilinogen Ur Leukocyte Esterase RPR Titer Nonreactive Labs noted Assessment: 09/29/17 15:47 Withdrawal symptoms Plan: Continue detox Encouraged to drink lots of water for hydration
[2017-09-29] MEDS: THIAMINE HCL 100 MG TABLET (FP) PO SCH (22:18)
[2017-09-30] MEDS ORDERED: METHADONE HCL 5 MG TABLET (FOR DETOX USE ONLY) PO ONE (10:00)
[2017-09-30] MEDS: PRENATAL VITAMINS W/ FOLIC ACID TABLET (FP) PO SCH (10:28)
[2017-09-30] MEDS: diazePAM 5 MG TABLET PO PRN ×3 (10:31→18:52)
--- NOTE | 2017-09-30 14:56 | PN ---
BHS Progress Note (SOAP) Subjective: Chills, sweating, anxious, interrupted sleep Objective: 09/30/17 14:54 Last Vital Signs Temp Pulse Resp BP Pulse Ox 97.7 F 72 18 129/81 09/30/17 14:41 09/30/17 14:41 09/30/17 14:41 09/30/17 14:41 Laboratory Tests 09/27/17 09/28/17 09/28/17 21:23 07:54 07:54 WBC 5.6 RBC 4.53 Hgb 13.0 Hct 39.7 MCV 87.5 MCH 28.7 MCHC 32.8 RDW 11.9 Plt Count 280 MPV 8.0 Sodium 142 Potassium 4.5 Chloride 104 Carbon Dioxide 32 Anion Gap 6 L BUN 10 Creatinine 0.7 Creat Clearance w eGFR > 60 Random Glucose 98 Calcium 9.3 Total Bilirubin 0.3 D AST 23 D ALT 66 Alkaline Phosphatase 119 H Total Protein 7.0 Albumin 3.6 Urine Color Yellow Urine Appearance Cloudy Urine pH 8.0 Ur Specific [place] 1.017 Urine Protein Negative Urine Glucose (UA) Negative Urine Ketones Negative Urine Blood Negative Urine Nitrite Negative Urine Bilirubin Negative Urine Urobilinogen Negative Ur Leukocyte Esterase Negative RPR Titer 09/28/17 07:54 WBC RBC Hgb Hct MCV MCH MCHC RDW Plt Count MPV Sodium Potassium Chloride Carbon Dioxide Anion Gap BUN Creatinine Creat Clearance w eGFR Random Glucose Calcium Total Bilirubin AST ALT Alkaline Phosphatase Total Protein Albumin Urine Color Urine Appearance Urine pH Ur Specific [place] Urine Protein Urine Glucose (UA) Urine Ketones Urine Blood Urine Nitrite Urine Bilirubin Urine Urobilinogen Ur Leukocyte Esterase RPR Titer Nonreactive Labs noted Assessment: 09/30/17 14:55 Withdrawal symptoms Plan: Continue detox Encouraged to drink lots of water for hydration Psychiatric consult for anxiety (patient reports h/o anxiety and wants to see psychiatrist)
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
[2017-09-30] MEDS: THIAMINE HCL 100 MG TABLET (FP) PO SCH (22:09)
[2017-09-30] MEDS: hydrOXYzine PAMOATE 50 MG CAPSULE (FP) PO PRN (22:09)
[2017-10-01] MEDS ORDERED: METHADONE HCL 10 MG TABLET (FOR DETOX USE ONLY) PO ONE (10:00)
[2017-10-01] MEDS: PRENATAL VITAMINS W/ FOLIC ACID TABLET (FP) PO SCH (10:12)
[2017-10-01] MEDS: hydrOXYzine PAMOATE 50 MG CAPSULE (FP) PO PRN ×3 (10:13→22:05)
--- NOTE | 2017-10-01 16:04 | PN ---
BHS Progress Note (SOAP) Subjective: Withdrawal sx Objective: 10/01/17 16:02 Vital Signs Temperature 97.5 F L 10/01/17 10:00 Pulse Rate 74 10/01/17 10:00 Respiratory Rate 20 10/01/17 10:00 Blood Pressure 134/71 10/01/17 10:00 O2 Sat by Pulse Oximetry (%) Laboratory Last Values WBC 5.6 K/mm3 (4.0-10.0) 09/28/17 07:54 RBC 4.53 M/mm3 (4.00-5.60) 09/28/17 07:54 Hgb 13.0 GM/dL (11.7-16.9) 09/28/17 07:54 Hct 39.7 % (35.4-49) 09/28/17 07:54 MCV 87.5 fl (80-96) 09/28/17 07:54 MCH 28.7 pg (25.7-33.7) 09/28/17 07:54 MCHC 32.8 g/dl (32.0-35.9) 09/28/17 07:54 RDW 11.9 % (11.9-15.9) 09/28/17 07:54 Plt Count 280 K/MM3 (134-434) 09/28/17 07:54 MPV 8.0 fl (7.5-11.1) 09/28/17 07:54 Sodium 142 mmol/L (136-145) 09/28/17 07:54 Potassium 4.5 mmol/L (3.5-5.1) 09/28/17 07:54 Chloride 104 mmol/L (98-107) 09/28/17 07:54 Carbon Dioxide 32 mmol/L (21-32) 09/28/17 07:54 Anion Gap 6 (8-16) L 09/28/17 07:54 BUN 10 mg/dL (7-18) 09/28/17 07:54 Creatinine 0.7 mg/dL (0.7-1.3) 09/28/17 07:54 Creat Clearance w eGFR > 60 (>60) 09/28/17 07:54 Random Glucose 98 mg/dL (74-106) 09/28/17 07:54 Calcium 9.3 mg/dL (8.5-10.1) 09/28/17 07:54 Total Bilirubin 0.3 mg/dL (0.2-1.0) D 09/28/17 07:54 AST 23 U/L (15-37) D 09/28/17 07:54 ALT 66 U/L (12-78) 09/28/17 07:54 Alkaline Phosphatase 119 U/L (45-117) H 09/28/17 07:54 Total Protein 7.0 g/dl (6.4-8.2) 09/28/17 07:54 Albumin 3.6 g/dl (3.4-5.0) 09/28/17 07:54 Urine Color Yellow 09/27/17 21:23 Urine Appearance Cloudy 09/27/17 21:23 Urine pH 8.0 (5.0-8.0) 09/27/17 21:23 Ur Specific [place] 1.017 (1.001-1.035) 09/27/17 21:23 Urine Protein Negative (NEGATIVE) 09/27/17 21:23 Urine Glucose (UA) Negative (NEGATIVE) 09/27/17 21:23 Urine Ketones Negative (NEGATIVE) 09/27/17 21:23 Urine Blood Negative (NEGATIVE) 09/27/17 21:23 Urine Nitrite Negative (NEGATIVE) 09/27/17 21:23 Urine Bilirubin Negative (NEGATIVE) 09/27/17 21:23 Urine Urobilinogen Negative mg/dL (0.2-1.0) 09/27/17 21:23 Ur Leukocyte Esterase Negative (NEGATIVE) 09/27/17 21:23 RPR Titer Nonreactive (NONREACTIVE) 09/28/17 07:54 labs noted Assessment: 10/01/17 16:03 withdrawal sx not in acute distress Plan: continue detox
[2017-10-01] MEDS: THIAMINE HCL 100 MG TABLET (FP) PO SCH (22:04)
[2017-10-02] MEDS ORDERED: METHADONE HCL 5 MG TABLET (FOR DETOX USE ONLY) PO ONE (06:00)
[2017-10-02] MEDS: hydrOXYzine PAMOATE 50 MG CAPSULE (FP) PO PRN ×2 (06:49→12:45)
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
[2017-10-02] MEDS: PRENATAL VITAMINS W/ FOLIC ACID TABLET (FP) PO SCH (10:15)
[2017-10-02 14:22] VITALS: BP 142/82; PULSE 85; TEMP 97.7
== END 2017-10-02 13:33 | disposition home or self-care (01) | DRG 773 ==
LOC: YASAS 13:33 → Y6N 18:42
PROVIDERS: ADMIT Internal Medicine; ATTEND Internal Medicine
PROC: HZ2ZZZZ Detoxification Services for Substance Abuse Treatment (ICD-10-PCS; principal; 2017-09-27)
DX: F11.23 Opioid dependence with withdrawal (principal); F12.20 Cannabis dependence, uncomplicated; F17.213 Nicotine dependence, cigarettes, with withdrawal; F41.9 Anxiety disorder, unspecified; F19.24 Other psychoactive substance dependence with psychoactive substance-induced mood disorder; G47.00 Insomnia, unspecified
CPT/HCPCS: 36415; 80053; 81003; 85027; 86593; 93005; 93010

== ENCOUNTER 2017-10-31 18:03 | Inpatient (IN) | payer OTHER ==
[2017-10-31 18:34] VITALS: BMI 24.2
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
[2017-10-31] MEDS ORDERED: P-EPHED 60MG/TRIPROLIDI 2.5MG TABLET PO PRN (20:27)
[2017-10-31] MEDS ORDERED: IBUPROFEN 400 MG TABLET (FP) PO PRN (20:27)
[2017-10-31] MEDS ORDERED: MAGNESIUM CITRATE 300 ML BOTTLE PO PRN (20:27)
[2017-10-31] MEDS ORDERED: LOPERAMIDE HCL 2 MG CAPSULE PO PRN (20:27)
[2017-10-31] MEDS ORDERED: MAG HYDROX/AL HYDROX/SIMETH 30 ML UNIT-DOSE CUP PO PRN (20:27)
[2017-10-31] MEDS ORDERED: MENTHOL/PHENOL 1 EACH UD MM PRN (20:27)
[2017-10-31] MEDS ORDERED: METHADONE HCL 10 MG TABLET (FOR DETOX USE ONLY) PO ONE ×2 (20:27→23:00)
[2017-10-31] MEDS ORDERED: MAGNESIUM HYDROX 2400MG/30ML ORAL SUSPENSION 30 ML CUP PO PRN (20:27)
[2017-10-31] MEDS ORDERED: ACETAMINOPHEN 325 MG TABLET (FP) PO PRN (20:27)
[2017-10-31] MEDS ORDERED: guaiFENesin/D-METHORPHAN HB 10 ML UNIT-DOSE CUPS PO PRN (20:27)
[2017-10-31] MEDS: diazePAM 5 MG TABLET PO PRN (22:16)
[2017-10-31] MEDS: THIAMINE HCL 100 MG TABLET (FP) PO SCH (22:16)
[2017-10-31] MEDS ORDERED: NICOTINE POLACRILEX 2 MG GUM BUC PRN (23:24)
[2017-10-31 23:33] LABS: URINE APPEARANCE SLCLOUDY; URINE BILIRUBIN NEGATIVE (NEGATIVE); URINE BLOOD 3+ (NEGATIVE); URINE COLOR DKYELLOW; URINE GLUCOSE (UA) NEGATIVE (NEGATIVE); URINE KETONE NEGATIVE (NEGATIVE); URINE LEUK ESTERASE NEGATIVE (NEGATIVE); URINE NITRITE NEGATIVE (NEGATIVE); URINE PROTEIN NEGATIVE (NEGATIVE); URINE UROBILINOGEN NEGATIVE mg/dL (0.2-1.0)
[2017-10-31 23:52] LABS: CALCIUM OXALATE CRYSTALS RARE /hpf (NONE SEEN); EPI CELLS RARE /HPF (FEW); URINE MUCUS MANY
--- NOTE | 2017-11-01 09:52 | PN ---
BHS COWS - Scale Resting Pulse: 0= [place] 80 or Below Sweatin= Chills/Flushing Restless Observation: 1= Difficult to Sit Still Pupil Size: 0= Normal to Room Light Bone or Joint Aches: 2= Severe Diffuse Aches Runny Nose/ Eye Tearin= Runny Nose/Eyes GI Upset > 30mins: 1= Stomach Cramp Tremor Observation of Outstretched Hands: 2= Slight Tremor Visible Yawning Observation: 0= None Anxiety or Irritability: 1=Feels Anxious/Irritable Goose Flesh Skin: 0=Smooth Skin COWS Score: 10 BHS Progress Note (SOAP) Subjective: general body aches tremor sweat GI upset Objective: 11/01/17 09:51 Vital Signs Temperature 97.3 F L 11/01/17 09:47 Pulse Rate 64 11/01/17 09:47 Respiratory Rate 18 11/01/17 09:47 Blood Pressure 145/98 11/01/17 09:47 O2 Sat by Pulse Oximetry (%) Laboratory Last Values Urine Color Dkyellow 10/31/17 Unknown Urine Appearance Slcloudy 10/31/17 Unknown Urine pH 5.0 (5.0-8.0) D 10/31/17 Unknown Ur Specific [place] 1.026 (1.001-1.035) 10/31/17 Unknown Urine Protein Negative (NEGATIVE) 10/31/17 Unknown Urine Glucose (UA) Negative (NEGATIVE) 10/31/17 Unknown Urine Ketones Negative (NEGATIVE) 10/31/17 Unknown Urine Blood 3+ (NEGATIVE) H 10/31/17 Unknown Urine Nitrite Negative (NEGATIVE) 10/31/17 Unknown Urine Bilirubin Negative (NEGATIVE) 10/31/17 Unknown Urine Urobilinogen Negative mg/dL (0.2-1.0) 10/31/17 Unknown Ur Leukocyte Esterase Negative (NEGATIVE) 10/31/17 Unknown Urine WBC (Auto) 1 /hpf (3-5) 10/31/17 Unknown Urine RBC (Auto) 21 /hpf (0-3) 10/31/17 Unknown Ur Epithelial Cells Rare /HPF (FEW) 10/31/17 Unknown Calcium Oxalate Crystal Rare /hpf (NONE SEEN) 10/31/17 Unknown Urine Mucus Many 10/31/17 Unknown lab noted Assessment: 11/01/17 09:51 withdrawal sx Plan: continue detox
[2017-11-01] MEDS ORDERED: METHADONE HCL 10 MG TABLET (FOR DETOX USE ONLY) PO ONE (10:00)
[2017-11-01 10:08] LABS: HEMATOCRIT 36.9 % (35.4-49); HEMOGLOBIN 12.1 GM/dL (11.7-16.9); MCH 28.1 pg (25.7-33.7); MCHC 32.9 g/dl (32.0-35.9); MEAN CELL VOLUME 85.5 fl (80-96); MEAN PLT VOLUME 7.1 fl (7.5-11.1); PLATELET COUNT 291 K/MM3 (134-434); RBC 4.31 M/mm3 (4.00-5.60); RDW 11.6 % (11.9-15.9); WHITE BLOOD COUNT 7.6 K/mm3 (4.0-10.0)
[2017-11-01 10:13] LABS: ALBUMIN 3.5 g/dl (3.4-5.0); ANION GAP 8 (8-16); BLOOD UREA NITROGEN 8 mg/dL (7-18); CALCIUM 8.7 mg/dL (8.5-10.1); CHLORIDE 102 mmol/L (98-107); CO2 32 mmol/L (21-32); GLUCOSE,RANDOM 102 mg/dL (74-106); POTASSIUM 4.6 mmol/L (3.5-5.1); SODIUM 142 mmol/L (136-145)
[2017-11-01 10:16] LABS: ALK PHOS 109 U/L (45-117); BILIRUBIN,TOTAL 0.5 mg/dL (0.2-1.0); CREATININE 0.7 mg/dL (0.7-1.3); SGOT/AST 8 U/L (15-37); SGPT/ALT 18 U/L (12-78)
[2017-11-01] MEDS: PRENATAL VITAMINS W/ FOLIC ACID TABLET (FP) PO SCH (10:26)
[2017-11-01] MEDS: diazePAM 5 MG TABLET PO PRN ×2 (10:29→17:29)
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
--- NOTE | 2017-11-01 14:09 | EKG ---
Test Reason : Blood Pressure : / mmHG Vent. Rate : 079 BPM Atrial Rate : 079 BPM P-R Int : 140 ms QRS Dur : 076 ms QT Int : 350 ms P-R-T Axes : 066 074 051 degrees QTc Int : 401 ms NORMAL SINUS RHYTHM NORMAL ECG WHEN COMPARED WITH ECG OF 27-SEP-2017 20:36, NO SIGNIFICANT CHANGE WAS FOUND Confirmed by MD SAYDA, CHRIS ([id number]) on 11/01/2017 2:08:55 PM Referred By: Confirmed By:CHRIS ALFREDO MD
[2017-11-01] MEDS: ZOLPIDEM TARTRATE 10 MG TABLET (PARK CARE ONLY) PO PRN (22:19)
[2017-11-01] MEDS: THIAMINE HCL 100 MG TABLET (FP) PO SCH (22:19)
[2017-11-02] MEDS: diazePAM 5 MG TABLET PO PRN ×4 (07:32→22:06)
[2017-11-02] MEDS ORDERED: METHADONE HCL 5 MG TABLET (FOR DETOX USE ONLY) PO ONE (10:00)
[2017-11-02] MEDS: PRENATAL VITAMINS W/ FOLIC ACID TABLET (FP) PO SCH (10:16)
[2017-11-02] MEDS: hydrOXYzine PAMOATE 50 MG CAPSULE (FP) PO PRN (10:16)
--- NOTE | 2017-11-02 10:29 | PN ---
BHS COWS - Scale Resting Pulse: 0= [place] 80 or Below Sweatin= Chills/Flushing Restless Observation: 3= Extraneous Movement Pupil Size: 1= Pupils >than Normal Bone or Joint Aches: 2= Severe Diffuse Aches Runny Nose/ Eye Tearin= Runny Nose/Eyes GI Upset > 30mins: 2= Nausea/Diarrhea Tremor Observation of Outstretched Hands: 2= Slight Tremor Visible Yawning Observation: 1= 1-2x During Session Anxiety or Irritability: 2=Irritable/Anxious Goose Flesh Skin: 0=Smooth Skin COWS Score: 16 S Progress Note (SOAP) Subjective: ALERT,IRRITABLE PAIN IN THE BODY AND BACK,ANXIOUS,INTERRUPTED SLEEP, Objective: 11/02/17 10:27 Vital Signs Temperature 97.0 F L 11/02/17 10:00 Pulse Rate 68 11/02/17 10:00 Respiratory Rate 20 11/02/17 10:00 Blood Pressure 141/87 11/02/17 10:00 O2 Sat by Pulse Oximetry (%) EKG NSR,NORMAL ECG Laboratory Last Values WBC 7.6 K/mm3 (4.0-10.0) D 11/01/17 07:00 RBC 4.31 M/mm3 (4.00-5.60) 11/01/17 07:00 Hgb 12.1 GM/dL (11.7-16.9) 11/01/17 07:00 Hct 36.9 % (35.4-49) 11/01/17 07:00 MCV 85.5 fl (80-96) 11/01/17 07:00 MCH 28.1 pg (25.7-33.7) 11/01/17 07:00 MCHC 32.9 g/dl (32.0-35.9) 11/01/17 07:00 RDW 11.6 % (11.9-15.9) L 11/01/17 07:00 Plt Count 291 K/MM3 (134-434) 11/01/17 07:00 MPV 7.1 fl (7.5-11.1) L D 11/01/17 07:00 Sodium 142 mmol/L (136-145) 11/01/17 07:00 Potassium 4.6 mmol/L (3.5-5.1) 11/01/17 07:00 Chloride 102 mmol/L (98-107) 11/01/17 07:00 Carbon Dioxide 32 mmol/L (21-32) 11/01/17 07:00 Anion Gap 8 (8-16) 11/01/17 07:00 BUN 8 mg/dL (7-18) 11/01/17 07:00 Creatinine 0.7 mg/dL (0.7-1.3) 11/01/17 07:00 Creat Clearance w eGFR > 60 (>60) 11/01/17 07:00 Random Glucose 102 mg/dL (74-106) 11/01/17 07:00 Calcium 8.7 mg/dL (8.5-10.1) 11/01/17 07:00 Total Bilirubin 0.5 mg/dL (0.2-1.0) D 11/01/17 07:00 AST 8 U/L (15-37) L D 11/01/17 07:00 ALT 18 U/L (12-78) D 11/01/17 07:00 Alkaline Phosphatase 109 U/L (45-117) 11/01/17 07:00 Total Protein 7.0 g/dl (6.4-8.2) 11/01/17 07:00 Albumin 3.5 g/dl (3.4-5.0) 11/01/17 07:00 Urine Color Dkyellow 10/31/17 Unknown Urine Appearance Slcloudy 10/31/17 Unknown Urine pH 5.0 (5.0-8.0) D 10/31/17 Unknown Ur Specific [place] 1.026 (1.001-1.035) 10/31/17 Unknown Urine Protein Negative (NEGATIVE) 10/31/17 Unknown Urine Glucose (UA) Negative (NEGATIVE) 10/31/17 Unknown Urine Ketones Negative (NEGATIVE) 10/31/17 Unknown Urine Blood 3+ (NEGATIVE) H 10/31/17 Unknown Urine Nitrite Negative (NEGATIVE) 10/31/17 Unknown Urine Bilirubin Negative (NEGATIVE) 10/31/17 Unknown Urine Urobilinogen Negative mg/dL (0.2-1.0) 10/31/17 Unknown Ur Leukocyte Esterase Negative (NEGATIVE) 10/31/17 Unknown Urine WBC (Auto) 1 /hpf (3-5) 10/31/17 Unknown Urine RBC (Auto) 21 /hpf (0-3) 10/31/17 Unknown Ur Epithelial Cells Rare /HPF (FEW) 10/31/17 Unknown Calcium Oxalate Crystal Rare /hpf (NONE SEEN) 10/31/17 Unknown Urine Mucus Many 10/31/17 Unknown RPR Titer Nonreactive (NONREACTIVE) 11/01/17 07:00 Assessment: 11/02/17 10:29 WITHDRAWAL SYMPTOM Plan: CONTINUE DETOX,REPEAT UA FOR MICROSCOPIC HEMATURIA
[2017-11-02] MEDS: ZOLPIDEM TARTRATE 10 MG TABLET (PARK CARE ONLY) PO PRN (22:05)
[2017-11-02] MEDS: THIAMINE HCL 100 MG TABLET (FP) PO SCH (22:06)
[2017-11-03] MEDS: diazePAM 5 MG TABLET PO PRN ×4 (05:54→18:37)
[2017-11-03 09:23] LABS: URINE APPEARANCE CLEAR; URINE BILIRUBIN NEGATIVE (NEGATIVE); URINE BLOOD NEGATIVE (NEGATIVE); URINE COLOR YELLOW; URINE GLUCOSE (UA) NEGATIVE (NEGATIVE); URINE KETONE NEGATIVE (NEGATIVE); URINE LEUK ESTERASE NEGATIVE (NEGATIVE); URINE NITRITE NEGATIVE (NEGATIVE); URINE PROTEIN NEGATIVE (NEGATIVE); URINE UROBILINOGEN NEGATIVE mg/dL (0.2-1.0)
[2017-11-03] MEDS ORDERED: METHADONE HCL 5 MG TABLET (FOR DETOX USE ONLY) PO ONE (10:00)
[2017-11-03] MEDS: PRENATAL VITAMINS W/ FOLIC ACID TABLET (FP) PO SCH (10:16)
--- NOTE | 2017-11-03 10:35 | PN ---
BHS Progress Note (SOAP) Subjective: ALERT,IRRITABLE,ANXIOUS,INTERRUPTED SLEEP,TREMOR Objective: 11/03/17 10:34 Vital Signs Temperature 97.0 F L 11/03/17 06:00 Pulse Rate 68 11/03/17 06:00 Respiratory Rate 16 11/03/17 06:00 Blood Pressure 136/84 11/03/17 06:00 O2 Sat by Pulse Oximetry (%) Laboratory Results - last 24 hr 11/02/17 12:05 Urine Color Yellow Urine Appearance Clear Urine pH 8.0 D Ur Specific [place] 1.017 Urine Protein Negative Urine Glucose (UA) Negative Urine Ketones Negative Urine Blood Negative Urine Nitrite Negative Urine Bilirubin Negative Urine Urobilinogen Negative Ur Leukocyte Esterase Negative Assessment: 11/03/17 10:34 WITHDRAWAL SYMPTOM Plan: CONTINUE DETOX
[2017-11-03] MEDS: ZOLPIDEM TARTRATE 10 MG TABLET (PARK CARE ONLY) PO PRN (22:14)
[2017-11-03] MEDS: THIAMINE HCL 100 MG TABLET (FP) PO SCH (22:14)
[2017-11-04] MEDS ORDERED: METHADONE HCL 10 MG TABLET (FOR DETOX USE ONLY) PO ONE (10:00)
[2017-11-04] MEDS: PRENATAL VITAMINS W/ FOLIC ACID TABLET (FP) PO SCH (10:43)
[2017-11-04] MEDS: hydrOXYzine PAMOATE 50 MG CAPSULE (FP) PO PRN ×3 (10:46→22:16)
--- NOTE | 2017-11-04 12:31 | PN ---
S Progress Note (SOAP) Subjective: ALERT,IRRITABLE,ANXIOUS,INTERRUPTED SLEEP, Objective: 11/04/17 12:30 Vital Signs Temperature 97.9 F 11/04/17 10:07 Pulse Rate 77 11/04/17 10:07 Respiratory Rate 18 11/04/17 10:07 Blood Pressure 122/72 11/04/17 10:07 O2 Sat by Pulse Oximetry (%) Assessment: 11/04/17 12:30 WITHDRAWAL SYMPTOM Plan: CONTINUE DETOX,DISCHARGE IN AM
[2017-11-04] MEDS: THIAMINE HCL 100 MG TABLET (FP) PO SCH (22:16)
[2017-11-05] MEDS ORDERED: METHADONE HCL 5 MG TABLET (FOR DETOX USE ONLY) PO ONE (06:00)
[2017-11-05] MEDS: hydrOXYzine PAMOATE 50 MG CAPSULE (FP) PO PRN (06:10)
[2017-11-05 06:24] VITALS: BP 150/74; PULSE 50; TEMP 97
--- NOTE | 2017-11-05 09:04 | DS ---
[facility] Detox Discharge Summary Admission Date: 10/31/17 Discharge Date: 11/05/17 - History Present History: Cannabis Dependence, Opioid Dependence Additional Comments: FOLLOW UP WITH AFTER CARE PROGRAM ARRANGEMENT Pertinent Past History: NICOTINE DEPENDENCE - Physical Exam Results Vital Signs: Vital Signs Temperature 97 F L 11/05/17 06:23 Pulse Rate 50 L 11/05/17 06:23 Respiratory Rate 16 11/05/17 06:23 Blood Pressure 150/74 11/05/17 06:23 O2 Sat by Pulse Oximetry (%) Pertinent Admission Physical Exam Findings: WITHDRAWAL SYMPTOM AND FINDING - Treatment Hospital Course: Detox Protocol Followed, Detoxed Safely, Responded well, Discharged Condition Good Patient has Accepted a Rehab Referral to: DECLINED - Medication Discharge Medications: Ambulatory Orders NK [No Known Home Medication] 05/23/17 - Diagnosis (1) Opioid dependence with withdrawal Current Visit: Yes Status: Acute (2) Insomnia Current Visit: Yes Status: Acute (3) Cannabis dependence Current Visit: No Status: Acute (4) Nicotine dependence Current Visit: No Status: Chronic Qualifiers: Nicotine product type: cigarettes - AMA Did Patient Leave Against Medical Advice: No
== END 2017-11-05 09:12 | disposition home or self-care (01) | DRG 773 ==
LOC: YASAS 18:03 → Y6N 19:03
PROVIDERS: ADMIT Internal Medicine; ATTEND Internal Medicine
PROC: HZ2ZZZZ Detoxification Services for Substance Abuse Treatment (ICD-10-PCS; principal; 2017-10-31)
DX: F11.23 Opioid dependence with withdrawal (principal); F12.20 Cannabis dependence, uncomplicated; F17.210 Nicotine dependence, cigarettes, uncomplicated; F32.9 Major depressive disorder, single episode, unspecified; G47.00 Insomnia, unspecified; Z87.828 Personal history of other (healed) physical injury and trauma
CPT/HCPCS: 36415; 80053; 81003; 81015; 85027; 86593; 93005; 93010

== ENCOUNTER 2018-08-31 18:12 | Inpatient (IN) | payer OTHER ==
[2018-08-31 18:27] VITALS: BMI 21.7
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
[2018-08-31] MEDS ORDERED: guaiFENesin/D-METHORPHAN HB 10 ML UNIT-DOSE CUPS PO PRN (20:45)
[2018-08-31] MEDS ORDERED: MENTHOL/PHENOL 1 EACH UD MM PRN (20:45)
[2018-08-31] MEDS ORDERED: ACETAMINOPHEN 325 MG TABLET (FP) PO PRN (20:45)
[2018-08-31] MEDS ORDERED: LOPERAMIDE HCL 2 MG CAPSULE PO PRN (20:45)
[2018-08-31] MEDS ORDERED: METHADONE HCL 10 MG TABLET (FOR DETOX USE ONLY) PO ONE ×2 (20:45→23:00)
[2018-08-31] MEDS ORDERED: MAG HYDROX/AL HYDROX/SIMETH 30 ML UNIT-DOSE CUP PO PRN (20:45)
[2018-08-31] MEDS ORDERED: P-EPHED 60MG/TRIPROLIDI 2.5MG TABLET PO PRN (20:45)
[2018-08-31] MEDS ORDERED: MAGNESIUM CITRATE 300 ML BOTTLE PO PRN (20:45)
[2018-08-31] MEDS ORDERED: IBUPROFEN 400 MG TABLET (FP) PO PRN (20:45)
[2018-08-31] MEDS ORDERED: MAGNESIUM HYDROX 2400MG/30ML ORAL SUSPENSION 30 ML CUP PO PRN (20:45)
[2018-08-31] MEDS: diazePAM 5 MG TABLET PO PRN (22:29)
[2018-08-31] MEDS: THIAMINE HCL 100 MG TABLET (FP) PO SCH (22:30)
[2018-09-01] MEDS ORDERED: METHADONE HCL 10 MG TABLET (FOR DETOX USE ONLY) PO ONE (10:00)
--- NOTE | 2018-09-01 10:21 | PN ---
BHS COWS - Scale Resting Pulse: 0= [place] 80 or Below Sweatin=Flushed/Facial Moisture Restless Observation: 1= Difficult to Sit Still Pupil Size: 0= Normal to Room Light Bone or Joint Aches: 1= Mild Discomfort Runny Nose/ Eye Tearin= Runny Nose/Eyes GI Upset > 30mins: 0= None Tremor Observation of Outstretched Hands: 2= Slight Tremor Visible Yawning Observation: 1= 1-2x During Session Anxiety or Irritability: 2=Irritable/Anxious Goose Flesh Skin: 0=Smooth Skin COWS Score: 11 BHS Progress Note (SOAP) Subjective: interrupted sleep sweats mild shakes body aches anxiety Objective: 09/01/18 10:38 Vital Signs Temperature 97.3 F L 09/01/18 10:02 Pulse Rate 74 09/01/18 10:02 Respiratory Rate 18 09/01/18 10:02 Blood Pressure 141/89 09/01/18 10:02 O2 Sat by Pulse Oximetry (%) labs pending [id number] ambulating no acute distress Assessment: 09/01/18 10:38 withdrawal sx Plan: continue detox increase fluids labs pending
[2018-09-01] MEDS: PRENATAL VITAMINS W/ FOLIC ACID TABLET (FP) PO SCH (10:30)
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
[2018-09-01] MEDS: diazePAM 5 MG TABLET PO PRN ×3 (10:33→22:40)
[2018-09-01 10:36] LABS: HEMATOCRIT 37.4 % (35.4-49); HEMOGLOBIN 12.4 GM/dL (11.7-16.9); MCHC 33.2 g/dl (32.0-35.9); MEAN CELL VOLUME 87.3 fl (80-96); MEAN PLT VOLUME 7.4 fl (7.5-11.1); PLATELET COUNT 243 K/MM3 (134-434); RBC 4.29 M/mm3 (4.00-5.60); WHITE BLOOD COUNT 6.6 K/mm3 (4.0-10.0)
[2018-09-01 11:14] LABS: ALBUMIN 3.5 g/dl (3.4-5.0); ALK PHOS 106 U/L (45-117); ANION GAP 7 MMOL/L (8-16); BILIRUBIN,TOTAL 0.3 mg/dL (0.2-1); BLOOD UREA NITROGEN 15 mg/dL (7-18); CALCIUM 8.7 mg/dL (8.5-10.1); CHLORIDE 101 mmol/L (98-107); CO2 31 mmol/L (21-32); CREATININE 0.8 mg/dL (0.55-1.3); GLUCOSE,RANDOM 88 mg/dL (74-106); POTASSIUM 4.5 mmol/L (3.5-5.1); SGOT/AST 35 U/L (15-37); SGPT/ALT 63 U/L (13-61); SODIUM 139 mmol/L (136-145); TOT PROT 6.5 g/dl (6.4-8.2)
[2018-09-01 21:14] LABS: URINE APPEARANCE CLOUDY; URINE BILIRUBIN NEGATIVE (<2.0 mg/dL); URINE COLOR DKYELLOW; URINE GLUCOSE (UA) NEGATIVE (NEGATIVE); URINE KETONE NEGATIVE (NEGATIVE); URINE LEUK ESTERASE NEGATIVE (NEGATIVE); URINE NITRITE NEGATIVE (NEGATIVE); URINE PROTEIN NEGATIVE (NEGATIVE); URINE UROBILINOGEN NEGATIVE mg/dL (0.2-1.0)
[2018-09-01] MEDS: THIAMINE HCL 100 MG TABLET (FP) PO SCH (22:39)
[2018-09-01] MEDS: MELATONIN 5 MG TABLETS PO PRN (22:40)
[2018-09-02] MEDS: diazePAM 5 MG TABLET PO PRN ×4 (05:59→22:08)
[2018-09-02] MEDS ORDERED: METHADONE HCL 5 MG TABLET (FOR DETOX USE ONLY) PO ONE (10:00)
[2018-09-02] MEDS: PRENATAL VITAMINS W/ FOLIC ACID TABLET (FP) PO SCH (10:38)
--- NOTE | 2018-09-02 13:44 | PN ---
BHS COWS - Scale Resting Pulse: 1= [place] 81-100 Sweatin=Flushed/Facial Moisture Restless Observation: 1= Difficult to Sit Still Pupil Size: 0= Normal to Room Light Bone or Joint Aches: 1= Mild Discomfort Runny Nose/ Eye Tearin= Runny Nose/Eyes GI Upset > 30mins: 1= Stomach Cramp Tremor Observation of Outstretched Hands: 1= Tremor [place], Not Seen Yawning Observation: 1= 1-2x During Session Anxiety or Irritability: 0= None Goose Flesh Skin: 0=Smooth Skin COWS Score: 10 BHS Progress Note (SOAP) Subjective: sweats interrupted sleep abd cramp Objective: 09/02/18 13:42 a & o x 3 slight tremors Vital Signs Temperature 98.3 F 09/02/18 10:39 Pulse Rate 82 09/02/18 10:39 Respiratory Rate 18 09/02/18 10:39 Blood Pressure 124/69 09/02/18 10:39 O2 Sat by Pulse Oximetry (%) Laboratory Last Values WBC 6.6 K/mm3 (4.0-10.0) 09/01/18 07:00 RBC 4.29 M/mm3 (4.00-5.60) 09/01/18 07:00 Hgb 12.4 GM/dL (11.7-16.9) 09/01/18 07:00 Hct 37.4 % (35.4-49) 09/01/18 07:00 MCV 87.3 fl (80-96) 09/01/18 07:00 MCH 29.0 pg (25.7-33.7) 09/01/18 07:00 MCHC 33.2 g/dl (32.0-35.9) 09/01/18 07:00 RDW 12.0 % (11.9-15.9) 09/01/18 07:00 Plt Count 243 K/MM3 (134-434) 09/01/18 07:00 MPV 7.4 fl (7.5-11.1) L 09/01/18 07:00 Sodium 139 mmol/L (136-145) 09/01/18 07:00 Potassium 4.5 mmol/L (3.5-5.1) 09/01/18 07:00 Chloride 101 mmol/L (98-107) 09/01/18 07:00 Carbon Dioxide 31 mmol/L (21-32) 09/01/18 07:00 Anion Gap 7 MMOL/L (8-16) L 09/01/18 07:00 BUN 15 mg/dL (7-18) 09/01/18 07:00 Creatinine 0.8 mg/dL (0.55-1.3) 09/01/18 07:00 Creat Clearance w eGFR > 60 (>60) 09/01/18 07:00 Random Glucose 88 mg/dL (74-106) 09/01/18 07:00 Calcium 8.7 mg/dL (8.5-10.1) 09/01/18 07:00 Total Bilirubin 0.3 mg/dL (0.2-1) 09/01/18 07:00 AST 35 U/L (15-37) 09/01/18 07:00 ALT 63 U/L (13-61) H 09/01/18 07:00 Alkaline Phosphatase 106 U/L (45-117) 09/01/18 07:00 Total Protein 6.5 g/dl (6.4-8.2) 09/01/18 07:00 Albumin 3.5 g/dl (3.4-5.0) 09/01/18 07:00 Urine Color Dkyellow 08/31/18 23: Urine Appearance Cloudy 08/31/18 23: Urine pH 6.0 (5.0-8.0) D 08/31/18 23:27 Ur Specific [place] 1.028 (1.010-1.035) 08/31/18 23: Urine Protein Negative (NEGATIVE) 08/31/18 23: Urine Glucose (UA) Negative (NEGATIVE) 08/31/18 23: Urine Ketones Negative (NEGATIVE) 08/31/18 23: Urine Blood Negative (NEGATIVE) 08/31/18 23: Urine Nitrite Negative (NEGATIVE) 08/31/18: Urine Bilirubin Negative (<2.0 mg/dL) 08/31/18 23: Urine Urobilinogen Negative mg/dL (0.2-1.0) 08/31/18 23: Ur Leukocyte Esterase Negative (NEGATIVE) 08/31/18 23: RPR Titer Nonreactive (NONREACTIVE) 09/01/18 07:00 HIV 1&2 Antibody Screen Negative 09/01/18 07:00 HIV P24 Antigen Negative 09/01/18 07:00 labs noted Assessment: 09/02/18 13:43 withdrawal sx Plan: continue increased hydration continue detox
[2018-09-02] MEDS: MELATONIN 5 MG TABLETS PO PRN (22:07)
[2018-09-02] MEDS: THIAMINE HCL 100 MG TABLET (FP) PO SCH (22:07)
[2018-09-03] MEDS: diazePAM 5 MG TABLET PO PRN ×3 (06:46→16:36)
[2018-09-03] MEDS ORDERED: METHADONE HCL 5 MG TABLET (FOR DETOX USE ONLY) PO ONE (10:00)
[2018-09-03] MEDS: PRENATAL VITAMINS W/ FOLIC ACID TABLET (FP) PO SCH (10:13)
--- NOTE | 2018-09-03 14:28 | PN ---
[facility] Progress Note (SOAP) Subjective: body aches joints pain muscle cramp trouble sleep at night tremor sweat anxiety Objective: 09/03/18 14:27 Vital Signs Temperature 98.8 F 09/03/18 14:07 Pulse Rate 70 09/03/18 14:07 Respiratory Rate 18 09/03/18 14:07 Blood Pressure 138/82 09/03/18 14:07 O2 Sat by Pulse Oximetry (%) Laboratory Last Values WBC 6.6 K/mm3 (4.0-10.0) 09/01/18 07:00 RBC 4.29 M/mm3 (4.00-5.60) 09/01/18 07:00 Hgb 12.4 GM/dL (11.7-16.9) 09/01/18 07:00 Hct 37.4 % (35.4-49) 09/01/18 07:00 MCV 87.3 fl (80-96) 09/01/18 07:00 MCH 29.0 pg (25.7-33.7) 09/01/18 07:00 MCHC 33.2 g/dl (32.0-35.9) 09/01/18 07:00 RDW 12.0 % (11.9-15.9) 09/01/18 07:00 Plt Count 243 K/MM3 (134-434) 09/01/18 07:00 MPV 7.4 fl (7.5-11.1) L 09/01/18 07:00 Sodium 139 mmol/L (136-145) 09/01/18 07:00 Potassium 4.5 mmol/L (3.5-5.1) 09/01/18 07:00 Chloride 101 mmol/L (98-107) 09/01/18 07:00 Carbon Dioxide 31 mmol/L (21-32) 09/01/18 07:00 Anion Gap 7 MMOL/L (8-16) L 09/01/18 07:00 BUN 15 mg/dL (7-18) 09/01/18 07:00 Creatinine 0.8 mg/dL (0.55-1.3) 09/01/18 07:00 Creat Clearance w eGFR > 60 (>60) 09/01/18 07:00 Random Glucose 88 mg/dL (74-106) 09/01/18 07:00 Calcium 8.7 mg/dL (8.5-10.1) 09/01/18 07:00 Total Bilirubin 0.3 mg/dL (0.2-1) 09/01/18 07:00 AST 35 U/L (15-37) 09/01/18 07:00 ALT 63 U/L (13-61) H 09/01/18 07:00 Alkaline Phosphatase 106 U/L (45-117) 09/01/18 07:00 Total Protein 6.5 g/dl (6.4-8.2) 09/01/18 07:00 Albumin 3.5 g/dl (3.4-5.0) 09/01/18 07:00 Urine Color Dkyellow 08/31/18 23: Urine Appearance Cloudy 08/31/18 23: Urine pH 6.0 (5.0-8.0) D 08/31/18 23:27 Ur Specific [place] 1.028 (1.010-1.035) 08/31/18 23:27 Urine Protein Negative (NEGATIVE) 08/31/18 23:27 Urine Glucose (UA) Negative (NEGATIVE) 08/31/18 23:27 Urine Ketones Negative (NEGATIVE) 08/31/18 23: Urine Blood Negative (NEGATIVE) 08/31/18 23: Urine Nitrite Negative (NEGATIVE) 08/31/18 23: Urine Bilirubin Negative (<2.0 mg/dL) 08/31/18 23: Urine Urobilinogen Negative mg/dL (0.2-1.0) 08/31/18 23: Ur Leukocyte Esterase Negative (NEGATIVE) 08/31/18 23:27 RPR Titer Nonreactive (NONREACTIVE) 09/01/18 07:00 HIV 1&2 Antibody Screen Negative 09/01/18 07:00 HIV P24 Antigen Negative 09/01/18 07:00 lab noted Assessment: 09/03/18 14:27 withdrawal sx Plan: continue detox
[2018-09-03] MEDS: MELATONIN 5 MG TABLETS PO PRN (22:24)
[2018-09-03] MEDS: THIAMINE HCL 100 MG TABLET (FP) PO SCH (22:24)
[2018-09-04] MEDS ORDERED: METHADONE HCL 10 MG TABLET (FOR DETOX USE ONLY) PO ONE (10:00)
[2018-09-04] MEDS: PRENATAL VITAMINS W/ FOLIC ACID TABLET (FP) PO SCH (10:09)
--- NOTE | 2018-09-04 14:57 | PN ---
[facility] Progress Note (SOAP) Subjective: feeling better no body ache no gi distress no tremor less sweat Objective: 09/04/18 14:56 Vital Signs Temperature 97.7 F 09/04/18 13:51 Pulse Rate 75 09/04/18 13:51 Respiratory Rate 18 09/04/18 13:51 Blood Pressure 133/97 09/04/18 13:51 O2 Sat by Pulse Oximetry (%) Laboratory Last Values WBC 6.6 K/mm3 (4.0-10.0) 09/01/18 07:00 RBC 4.29 M/mm3 (4.00-5.60) 09/01/18 07:00 Hgb 12.4 GM/dL (11.7-16.9) 09/01/18 07:00 Hct 37.4 % (35.4-49) 09/01/18 07:00 MCV 87.3 fl (80-96) 09/01/18 07:00 MCH 29.0 pg (25.7-33.7) 09/01/18 07:00 MCHC 33.2 g/dl (32.0-35.9) 09/01/18 07:00 RDW 12.0 % (11.9-15.9) 09/01/18 07:00 Plt Count 243 K/MM3 (134-434) 09/01/18 07:00 MPV 7.4 fl (7.5-11.1) L 09/01/18 07:00 Sodium 139 mmol/L (136-145) 09/01/18 07:00 Potassium 4.5 mmol/L (3.5-5.1) 09/01/18 07:00 Chloride 101 mmol/L (98-107) 09/01/18 07:00 Carbon Dioxide 31 mmol/L (21-32) 09/01/18 07:00 Anion Gap 7 MMOL/L (8-16) L 09/01/18 07:00 BUN 15 mg/dL (7-18) 09/01/18 07:00 Creatinine 0.8 mg/dL (0.55-1.3) 09/01/18 07:00 Creat Clearance w eGFR > 60 (>60) 09/01/18 07:00 Random Glucose 88 mg/dL (74-106) 09/01/18 07:00 Calcium 8.7 mg/dL (8.5-10.1) 09/01/18 07:00 Total Bilirubin 0.3 mg/dL (0.2-1) 09/01/18 07:00 AST 35 U/L (15-37) 09/01/18 07:00 ALT 63 U/L (13-61) H 09/01/18 07:00 Alkaline Phosphatase 106 U/L (45-117) 09/01/18 07:00 Total Protein 6.5 g/dl (6.4-8.2) 09/01/18 07:00 Albumin 3.5 g/dl (3.4-5.0) 09/01/18 07:00 Urine Color Dkyellow 08/31/18 23: Urine Appearance Cloudy 08/31/18 23: Urine pH 6.0 (5.0-8.0) D 08/31/18 23:27 Ur Specific [place] 1.028 (1.010-1.035) 08/31/18 23:27 Urine Protein Negative (NEGATIVE) 08/31/18 23:27 Urine Glucose (UA) Negative (NEGATIVE) 08/31/18 23:27 Urine Ketones Negative (NEGATIVE) 08/31/18 23: Urine Blood Negative (NEGATIVE) 08/31/18 23: Urine Nitrite Negative (NEGATIVE) 08/31/18 23: Urine Bilirubin Negative (<2.0 mg/dL) 08/31/18 23: Urine Urobilinogen Negative mg/dL (0.2-1.0) 08/31/18 23: Ur Leukocyte Esterase Negative (NEGATIVE) 08/31/18 23: RPR Titer Nonreactive (NONREACTIVE) 09/01/18 07:00 HIV 1&2 Antibody Screen Negative 09/01/18 07:00 HIV P24 Antigen Negative 09/01/18 07:00 lab noted Assessment: 09/04/18 14:57 mild withdrawal sx Plan: medically supervised detox
[2018-09-04] MEDS: THIAMINE HCL 100 MG TABLET (FP) PO SCH (21:39)
[2018-09-04] MEDS: MELATONIN 5 MG TABLETS PO PRN (21:39)
[2018-09-05] MEDS ORDERED: METHADONE HCL 5 MG TABLET (FOR DETOX USE ONLY) PO ONE (06:00)
[2018-09-05 09:15] VITALS: BP 154/93; PULSE 71; TEMP 98.8
--- NOTE | 2018-09-05 09:56 | DS ---
[facility] Detox Discharge Summary Admission Date: 08/31/18 Discharge Date: 09/05/18 - History Present History: Opioid Dependence Additional Comments: 27 years old male admitted on 08/31/18 for opiate withdrawal sx completed opiate detox regimen tolerated well alert oriented x 3 no acute distress aftercare suboxone program had history of subxone maintenance was doing well but relapse and unable to redirect self toward "the right" direction patient is determined to do well with possibility of vivitrol IM - Physical Exam Results Vital Signs: Vital Signs Temperature 98.8 F 09/05/18 09:15 Pulse Rate 71 09/05/18 09:15 Respiratory Rate 18 09/05/18 09:15 Blood Pressure 154/93 09/05/18 09:15 O2 Sat by Pulse Oximetry (%) Pertinent Admission Physical Exam Findings: opiate withdrawal sx Vital Signs Temperature 98.8 F 09/05/18 09:15 Pulse Rate 71 09/05/18 09:15 Respiratory Rate 18 09/05/18 09:15 Blood Pressure 154/93 09/05/18 09:15 O2 Sat by Pulse Oximetry (%) Laboratory Last Values WBC 6.6 K/mm3 (4.0-10.0) 09/01/18 07:00 RBC 4.29 M/mm3 (4.00-5.60) 09/01/18 07:00 Hgb 12.4 GM/dL (11.7-16.9) 09/01/18 07:00 Hct 37.4 % (35.4-49) 09/01/18 07:00 MCV 87.3 fl (80-96) 09/01/18 07:00 MCH 29.0 pg (25.7-33.7) 09/01/18 07:00 MCHC 33.2 g/dl (32.0-35.9) 09/01/18 07:00 RDW 12.0 % (11.9-15.9) 09/01/18 07:00 Plt Count 243 K/MM3 (134-434) 09/01/18 07:00 MPV 7.4 fl (7.5-11.1) L 09/01/18 07:00 Sodium 139 mmol/L (136-145) 09/01/18 07:00 Potassium 4.5 mmol/L (3.5-5.1) 09/01/18 07:00 Chloride 101 mmol/L (98-107) 09/01/18 07:00 Carbon Dioxide 31 mmol/L (21-32) 09/01/18 07:00 Anion Gap 7 MMOL/L (8-16) L 09/01/18 07:00 BUN 15 mg/dL (7-18) 09/01/18 07:00 Creatinine 0.8 mg/dL (0.55-1.3) 09/01/18 07:00 Creat Clearance w eGFR > 60 (>60) 09/01/18 07:00 Random Glucose 88 mg/dL (74-106) 09/01/18 07:00 Calcium 8.7 mg/dL (8.5-10.1) 09/01/18 07:00 Total Bilirubin 0.3 mg/dL (0.2-1) 09/01/18 07:00 AST 35 U/L (15-37) 09/01/18 07:00 ALT 63 U/L (13-61) H 09/01/18 07:00 Alkaline Phosphatase 106 U/L (45-117) 09/01/18 07:00 Total Protein 6.5 g/dl (6.4-8.2) 09/01/18 07:00 Albumin 3.5 g/dl (3.4-5.0) 09/01/18 07:00 Urine Color Dkyellow 08/31/18 23: Urine Appearance Cloudy 08/31/18 23: Urine pH 6.0 (5.0-8.0) D 08/31/18 23: Ur Specific [place] 1.028 (1.010-1.035) 08/31/18 23: Urine Protein Negative (NEGATIVE) 08/31/18 23: Urine Glucose (UA) Negative (NEGATIVE) 08/31/18 23: Urine Ketones Negative (NEGATIVE) 08/31/18 23: Urine Blood Negative (NEGATIVE) 08/31/18: Urine Nitrite Negative (NEGATIVE) 08/31/18 23: Urine Bilirubin Negative (<2.0 mg/dL) 08/31/18 23: Urine Urobilinogen Negative mg/dL (0.2-1.0) 08/31/18 23: Ur Leukocyte Esterase Negative (NEGATIVE) 08/31/18 23:27 RPR Titer Nonreactive (NONREACTIVE) 09/01/18 07:00 HIV 1&2 Antibody Screen Negative 09/01/18 07:00 HIV P24 Antigen Negative 09/01/18 07:00 lab noted - Treatment Hospital Course: Detox Protocol Followed, Detoxed Safely, Responded well, Discharged Condition Good, Rehab Referral Accepted Patient has Accepted a Rehab Referral to: Dr Lonny Hutton Medication-Assisted treatment - Medication Discharge Medications: Ambulatory Orders NK [No Known Home Medication] 08/31/18 - Diagnosis (1) Opioid dependence with withdrawal Status: Acute (2) Nicotine dependence Status: Acute Qualifiers: Nicotine product type: cigarettes Substance use status: in withdrawal Qualified Code(s): F17.213 - Nicotine dependence, cigarettes, with withdrawal (3) Substance induced mood disorder Status: Suspected - AMA Did Patient Leave Against Medical Advice: No
== END 2018-09-05 09:15 | disposition home or self-care (01) | DRG 773 ==
LOC: YASAS 18:12 → Y6N 21:30
PROC: HZ2ZZZZ Detoxification Services for Substance Abuse Treatment (ICD-10-PCS; principal; 2018-08-31)
DX: F11.23 Opioid dependence with withdrawal (principal); F12.20 Cannabis dependence, uncomplicated; F17.213 Nicotine dependence, cigarettes, with withdrawal; F19.282 Other psychoactive substance dependence with psychoactive substance-induced sleep disorder; F19.24 Other psychoactive substance dependence with psychoactive substance-induced mood disorder; F41.9 Anxiety disorder, unspecified; F32.9 Major depressive disorder, single episode, unspecified; G47.00 Insomnia, unspecified
CPT/HCPCS: 36415; 80053; 81003; 85027; 86593; 87389